=== PATIENT | male | born 1945 | race African-American/Black ===

== ENCOUNTER 2016-08-21 06:40 | Day surgery (SDC) | payer OTHER ==
--- NOTE | ~2016-08-21 | PREOPHP ---
PreOp History and Physical [id number] [place]. [address] NAME: KYLE KAPOOR : 47 STATUS : REG [facility]#: [id number] AGE: 70 ADM/REG DATE : 08/21/16 MR#: [id number] REPORT SERV DATE: 08/21/16 DICTATED BY: YC KOHLI III DATE: 08/07/16 REPORT STATUS : Draft TRANSCRIBED BY: MODBina DATE: 08/07/16 HISTORY OF PRESENT ILLNESS: This 70-year-old male comes to the operating room for laparoscopic revision of a nonfunctioning peritoneal dialysis catheter, possible laparotomy, possible replacement of the catheter. The patient has a history of end-stage renal disease. He is currently dependent on hemodialysis. The patient had a peritoneal dialysis catheter which was placed in January of last year. Soon after surgery, the patient fell and injured his shoulder. He has not used his peritoneal dialysis catheter since that time. Recently, it was noted that the catheter does not flush adequately. He comes now for laparoscopic revision of the catheter, possible replacement, possible laparotomy. MEDICATIONS: Aspirin, atorvastatin, calcium, carvedilol, hydroxychloroquine, Levemir insulin, magnesium, prednisone, tamsulosin, torsemide, zolpidem, baclofen, lorazepam. PAST MEDICAL HISTORY: Includes chronic kidney disease, dialysis dependent; hypertension; obesity; insulin-dependent diabetes mellitus; arthritis; hyperlipidemia; congestive heart failure; coronary artery disease; history of myocardial infarction. ALLERGIES: NONE. PAST SURGICAL HISTORY: Includes toe amputation and peritoneal dialysis catheter placement. FAMILY HISTORY: Positive for diabetes and heart disease. SOCIAL HISTORY: The patient has a previous history of tobacco abuse. No history of alcohol use. REVIEW OF SYSTEMS: The patient complains of swelling in his hands and feet, back pain. PHYSICAL EXAMINATION: GENERAL: Reveals a very large, very obese male, in no acute distress. He is alert and oriented x3. VITAL SIGNS: Blood pressure 152/74, pulse 90, temp 97.7. HEENT: Unremarkable. Cranial nerves II through XII were normal. LUNGS: Clear. CARDIAC: Normal. ABDOMEN: Soft. Nontender. He has a peritoneal dialysis catheter in place. ASSESSMENT: 1. A 70-year-old male with end-stage renal disease, dialysis dependent, with nonfunctioning or inadequately functioning peritoneal dialysis catheter. 2. Obesity. 3. Insulin-dependent diabetes mellitus. 4. Coronary artery disease. 5. History of myocardial infarction in the past. 6. Hypertension. PreOp History and Physical [address] [address] NAME: KYLE KAPOOR : 47 STATUS : REG [facility] PAT#: [id number] AGE: 70 ADM/REG DATE : 08/21/16 MR#: [id number] REPORT SERV DATE: 08/21/16 DICTATED BY: CY KOHLI III DATE: 08/07/16 REPORT STATUS : Draft TRANSCRIBED BY: MODL DATE: 08/07/16 7. Obesity. 8. Arthritis. 9. Hyperlipidemia. PLAN: The patient comes to the operating room now for laparoscopic revision of his peritoneal dialysis catheter, possible replacement of the catheter, possible laparotomy. This procedure, the risks, benefits, and alternatives, including not limited to the risk for bleeding, infection, enterotomy, injury to any abdominal structure, postop small bowel obstruction, ileus, infection of the catheter, peritonitis requiring removal of the catheter, migration or occlusion of the catheter requiring replacement or revision, possible need for laparotomy, possibility that we may not be able to obtain a functioning catheter and that the patient may not be a candidate for peritoneal dialysis and unforeseen complications including deep venous thrombosis, pulmonary embolus, myocardial infarction, stroke, pneumonia, and , have been fully and completely explained to the patient and family prior to surgery. The fact that this is a major operation with risk for major morbidity and mortality has been explained. The expected length of recovery has been explained. The patient and family had questions which have been answered. They clearly understand the risks and agreed to surgery as planned. KARI/LOGAN Cy Kohli III, M.D. / [id number]
--- NOTE | ~2016-08-21 | OP ---
Record Of Operation [facility] [address] [place]. [address] NAME: KYLE KAPOOR : 47 STATUS : REG [facility] PAT#: [id number] AGE: 70 ADM/REG DATE : 08/21/16 MR#: [id number] REPORT SERV DATE: 08/21/16 DICTATED BY: CY KOHLI III DATE: 08/21/16 REPORT STATUS : Draft TRANSCRIBED BY: MODL DATE: 08/21/16 DATE OF PROCEDURE: 08/21/2016 PREOPERATIVE DIAGNOSIS: Poorly draining peritoneal dialysis catheter, with a history of end- stage renal disease, with need for revision of catheter. POSTOPERATIVE DIAGNOSIS: Poorly draining peritoneal dialysis catheter, with a history of end stage renal disease, with need for revision of catheter, occlusion of catheter due to fibrinous membrane occluding the catheter. PROCEDURE: Laparoscopic revision of peritoneal dialysis catheter with lysis of adhesions. SURGEON: Dr. Cy Kohli. ANESTHESIA: General with intubation. COMPLICATIONS: None. ESTIMATED BLOOD LOSS: Less than 5 mL. SPECIMENS: None. DRAINS: None. LAP AND SPONGE COUNT: Correct x3. BRIEF HISTORY: This 70-year-old male has a history of end-stage renal disease and is currently dependent on hemodialysis. The patient has a peritoneal dialysis catheter which was placed in January of last year. The patient has not been able to use it because of other medical issues. He is now in desire of using the catheter when it was noted that it does not flush adequately. It was therefore felt that laparoscopic revision of the catheter, possible replacement of the catheter, possible laparotomy was indicated. This procedure, the risks, benefits, and alternatives, including but not limited to the risk for bleeding, infection, enterotomy, injury to abdominal structure, postop small bowel obstruction, ileus, infection of the catheter, peritonitis, requiring removal of the catheter, dislodgement of the catheter or migration requiring revision or replacement, possible need for laparotomy with the possibility that we might not be able to obtain a functioning dialysis catheter, the possibility that the patient might not be a candidate for peritoneal dialysis and unforeseen complications including deep venous thrombosis, pulmonary embolus, myocardial infarction, stroke, pneumonia, and , were carefully and fully explained to the patient and his family prior to surgery. Their questions were answered. They understood the risks and agreed to the surgery as planned. FINDINGS: The peritoneal dialysis catheter was in the correct position. A fibrinous membrane had grown around the catheter and there were adhesions around as well, completely engulfing the catheter and encasing it. This membrane and the adhesions were completely Record Of Operation [id number] [facility] [place]. [address] NAME: KYLE KAPOOR : 47 STATUS : REG [facility] PAT#: [id number] AGE: 70 ADM/REG DATE : 08/21/16 MR#: [id number] REPORT SERV DATE: 08/21/16 DICTATED BY: CY KOHLI III DATE: 08/21/16 REPORT STATUS : Draft TRANSCRIBED BY: MODBina DATE: 08/21/16 divided and freed up and the catheter was removed over to the right lower abdominal wall in an attempt to free it from all adhesions. PROCEDURE IN DETAIL: After being properly identified and after discussing the risks of surgery with the patient and his family again in the preoperative area, he was taken to the operating room and placed in the supine position on the operating room table. General anesthesia was administered and he was intubated without difficulty. The abdomen was prepped and draped sterilely in the usual fashion. After an appropriate "time-out" per JCAHO standards, a small transverse incision was made just beneath the xiphoid process. The incision was continued through the subcutaneous tissue. Hemostasis was controlled with electrocautery. The patient is very obese and his abdominal wall was very thick. We dissected down to the fascia. The fascia was opened and the perineum was opened. The abdominal cavity was entered under direct vision. A #10 balloon tipped Origin trocar was placed under direct vision into the peritoneal cavity. The balloon was inflated. The abdominal cavity was insufflated to about 13 mmHg of carbon dioxide. The laparoscope was placed through the trocar. The lower abdomen was inspected. The peritoneal dialysis catheter was identified. It was in the correct position but it had been completely engulfed and encased with a fibrinous membrane completely encircling it. There were also adhesions between several loops of small bowel and the catheter so that was completely occluded with these adhesions and the fibrinous membrane. These were confined to the area where the catheter was located. There were no other unusual findings noted. Two 5 mm trocars were then placed along the left lateral abdominal wall, under direct vision with a laparoscope. Appropriate instruments were placed through the trocars. Using sharp dissection, the membrane which was completely encased in the catheter was completely divided from the midline of the abdominal wall all the way distally. There were several bands of adhesions between several loops of bowel and the catheter and these were divided using sharp dissection. In this way, the entire catheter was freed up completely from this membrane and adhesions. The catheters were relocated over to the right lower quadrant where there were no adhesions and away from the area where the adhesive process was located. The catheter was tacked in position with a 0 Prolene suture placed through the abdominal wall using a suture passer. This resulted in good positioning of the catheter in the right lower quadrant. The catheter was then connected to 500 mL bag of saline. The saline was allowed to flow through the catheter. It was noted to flow easily and rapidly with no resistance. The saline bag was then placed to the ground and the fluid was allowed to egress out of the abdominal cavity by gravity. It was noted to flow easily with no resistance. Hemostasis was assured. The lateral two trocars were removed under direct vision with the laparoscope. Finally the subxiphoid trocar was removed under direct vision with a laparoscope to assure hemostasis in this incision. The air was removed from the peritoneal cavity through this incision. Hemostasis was assured. The fascia of this incision was closed with interrupted 0 Vicryl sutures. The skin incisions were closed with running subcuticular 4-0 Monocryl stitches. The catheter was capped off. Dressings were applied. Anesthesia was reversed. The patient was taken to the recovery room in stable condition. He tolerated the procedure well. His family was informed of the results of surgery. The patient will be discharged Record Of Operation [address] [address] NAME: KYLE KAPOOR : 47 STATUS : REG [facility] PAT#: [id number] AGE: 70 ADM/REG DATE : 08/21/16 MR#: [id number] REPORT SERV DATE: 08/21/16 DICTATED BY: CY KOHLI III DATE: 08/21/16 REPORT STATUS : Draft TRANSCRIBED BY: MODL DATE: 08/21/16 when stable and comfortable and able to void and ambulate. His family was advised that he should keep his wounds clean and dry for one week and that he should not drive for three to four days after surgery or while using narcotics and that he should monitor his glucose carefully and that he should resume his usual medications. He was asked to return to see me in two weeks for followup and to see the peritoneal dialysis nurse in one week or as she instructs. He was advised to keep his wounds clean and dry until he sees the dialysis nurse in one week. He was given a prescription for Percocet 7.5 one t.i.d. #12, as needed for pain, which he was advised not to use while driving or with other narcotics. He was asked to return for any nausea, vomiting, fever, chills, wound drainage, or any other problems prior to that time. RHJ/OLGAN Cy Kohli III, M.D. / [id number] CC: Haleigh Carcamo III, M.D.
[~2016-08-21 06:40] MED LIST: AMB10 PO; ARAVA10 PO; ARAVA20 PO; ASAB PO; ATV.5 PO; COREG12 PO; COREG6 PO; CPZ25 PO; DEMA20 PO; ENDOCET1 TA1 PO; ENDOCET1 TAB PO; FIBER PO; FIBERCON PO; FLOMAX4 PO; HUMALOG SC; HUMAMIXPEN SC; IRON INFUSION IV; IRON325 MG PO; LEVAQUIN5T PO; LEVEMFLXPN SC; LEVEMIR SC; LIOR10 PO; LIPITOR40 PO; MAGOX4 PO; MULTIPLE VIT PO; NORCO1 TA1 PO; NOVOPENMIX SC; P10 PO; P20 PO; PERCOCET1 TA2 PO; PHOSLO PO; PLAQ200B PO; PRAVACHOL40 MG PO; PRIN20 PO; REG5 PO; SB325 PO; SODIUM BICAR PO; Z-PAK PO; [UNRECOGNIZED DRUG - OTHER] PO; [UNRECOGNIZED DRUG - OTHER] PO; [UNRECOGNIZED DRUG - OTHER] PO; [UNRECOGNIZED DRUG - OTHER] PO
[2016-08-21 07:44] LABS: BASOPHILS 0.3 %; BASOPHILS ABSOLUTE 0.02 10/3/uL (0.0-0.16); EOSINOPHILS 2.8 %; EOSINOPHILS ABSOLUTE 0.16 10/3/uL (0.0-0.53); HEMOGLOBIN 11.7 g/dL (13.6-17.8); IMMATURE GRANULOCYTES 1.2 %; IMMATURE GRANULOCYTES ABSOLUTE 0.07 10/3/uL (0.0-0.11); LYMPHOCYTES 23.6 %; LYMPHOCYTES ABSOLUTE 1.36 10/3/uL (0.67-4.30); MEAN CORPUSCULAR HEMOGLOB 25.4 pg (26.0-34.0); MEAN CORPUSCULAR VOLUME 79.6 fL (80-100); MEAN PLATELET VOLUME 10.2 fL (9.2-13.0); MONOCYTES 18.5 %; MONOCYTES ABSOLUTE 1.07 10/3/uL (0.21-1.20); NEUTROPHILS 53.6 %; NEUTROPHILS ABSOLUTE 3.09 10/3/uL (2.02-8.40); PLATELET COUNT 317 10/3/uL (150-400); RBC DISTRIBUTION WIDTH 17.3 % (12.0-16.0); WHITE BLOOD CELLS 5.8 10/3/uL (4.5-10.5)
[2016-08-21 07:45] LABS: HEMATOCRIT 36.6 % (40.0-51.0); MANUAL DIFF NO %
[2016-08-21 08:23] LABS: ALBUMIN 3.1 G/DL (3.5-5.0); CALCIUM, SERUM 8.7 MG/DL (8.5-10.4); CHLORIDE, SERUM 100 MMOL/L (96-112); CO2 (CARBON DIOXIDE) 27 MMOL/L (24-34); POTASSIUM, SERUM 4.2 MMOL/L (3.5-5.3); SGOT(AST) 15 U/L (5-40); SGPT(ALT) 15 U/L (5-65); SODIUM, SERUM 138 MMOL/L (135-148); TOTAL BILIRUBIN 0.3 MG/DL (0-1.2); TOTAL PROTEIN 7.1 G/DL (6.0-8.5)
[2016-08-21 08:24] LABS: A/G RATIO 0.8 (0.7-1.9); ALKALINE PHOSPHATASE 130 U/L (45-117); BUN (BLOOD UREA NITROGEN) 36 MG/DL (6-23); CREATININE 3.79 MG/DL (0.70-1.30); GFR AFRICAN AMERICAN 18 ML/MIN (>=60); GFR NON AFRICAN AMERICAN 15 ML/MIN (>=60); GLUCOSE, SERUM 146 MG/DL (60-99)
[2016-08-21 12:15] LABS: HEMATOCRIT 43.5 % (40.0-51.0); HEMOGLOBIN 12.9 g/dL (13.6-17.8)
[2016-10-09] MEDS ORDERED: CPZ25 PO (15:55)
[2016-10-09] MEDS ORDERED: ZANTAC 150 PO (15:56)
[2017-02-24] MEDS ORDERED: PHOSLO PO (15:18)
[2017-02-24] MEDS ORDERED: PRAVACHOL40 MG PO (15:19)
[2017-02-24] MEDS ORDERED: PREDNISONE2.5 MG PO (15:21)
[2017-02-24] MEDS ORDERED: P5 PO (15:21)
[2017-02-28] MEDS ORDERED: DSS PO (16:57)
[2017-02-28] MEDS ORDERED: BACTRONASA NAS (17:08)
[2017-02-28] MEDS ORDERED: ULTRAM50 PO (17:32)
[2017-02-28] MEDS ORDERED: ZOFRAN4 PO (17:32)
[2017-02-28] MEDS ORDERED: ACET500CAP PO (17:34)
[2017-02-28] MEDS ORDERED: COREG6 PO (17:42)
== END 2016-08-21 13:03 | disposition home or self-care (01) ==
LOC: SDC 06:40
PROVIDERS: Surgery
PROC: 0JWT33Z Revision of Infusion Device in Trunk Subcutaneous Tissue and Fascia, Percutaneous Approach (ICD-10-PCS; principal; 2016-08-21 07:45)
DX: T85.691A Other mechanical complication of intraperitoneal dialysis catheter, initial encounter (principal); I13.0 Hypertensive heart and chronic kidney disease with heart failure and stage 1 through stage 4 chronic kidney disease, or unspecified chronic kidney disease; E11.22 Type 2 diabetes mellitus with diabetic chronic kidney disease; I50.9 Heart failure, unspecified; N18.9 Chronic kidney disease, unspecified; E78.5 Hyperlipidemia, unspecified; I25.2 Old myocardial infarction; I25.10 Atherosclerotic heart disease of native coronary artery without angina pectoris; E66.9 Obesity, unspecified; E78.00 Pure hypercholesterolemia, unspecified; I73.9 Peripheral vascular disease, unspecified; M06.9 Rheumatoid arthritis, unspecified; K21.9 Gastro-esophageal reflux disease without esophagitis; Z79.82 Long term (current) use of aspirin; Z79.899 Other long term (current) drug therapy; Z82.49 Family history of ischemic heart disease and other diseases of the circulatory system; Z83.3 Family history of diabetes mellitus; Z87.891 Personal history of nicotine dependence; Z88.8 Allergy status to other drugs, medicaments and biological substances; Z79.4 Long term (current) use of insulin; Z79.891 Long term (current) use of opiate analgesic; Z90.89 Acquired absence of other organs; Z98.890 Other specified postprocedural states
CPT/HCPCS: 80053; 82962; 85014; 85018; 85025; 93005; A9270-GY; J0690; J2405; J2710; J3010

== ENCOUNTER 2016-08-22 15:41 | Emergency (ER) | payer OTHER ==
[2016-08-22 13:22] LABS: BASOPHILS 0.3 %; BASOPHILS ABSOLUTE 0.02 10/3/uL (0.0-0.16); EOSINOPHILS 1.7 %; EOSINOPHILS ABSOLUTE 0.13 10/3/uL (0.0-0.53); HEMATOCRIT 38.1 % (40.0-51.0); HEMOGLOBIN 11.8 g/dL (13.6-17.8); IMMATURE GRANULOCYTES 0.5 %; IMMATURE GRANULOCYTES ABSOLUTE 0.04 10/3/uL (0.0-0.11); LYMPHOCYTES 10.4 %; LYMPHOCYTES ABSOLUTE 0.79 10/3/uL (0.67-4.30); MANUAL DIFF NO %; MEAN CORPUSCULAR HEMOGLOB 25.7 pg (26.0-34.0); MONOCYTES 15.9 %; MONOCYTES ABSOLUTE 1.21 10/3/uL (0.21-1.20); NEUTROPHILS 71.2 %; PLATELET COUNT 275 10/3/uL (150-400); RBC DISTRIBUTION WIDTH 17.1 % (12.0-16.0); RED CELL COUNT 4.59 10/6/uL (4.7-6.1); WHITE BLOOD CELLS 7.6 10/3/uL (4.5-10.5)
[2016-08-22 13:28] LABS: INTERNATIONAL NORMAL RATI 1.3 UNITS (-); PARTIAL THROMBO TIME 36.3 SEC (22.5-37.2); PROTIME (NOT ORD) 16.2 SEC (12.0-14.5)
[2016-08-22 13:38] LABS: CALCIUM, SERUM 8.6 MG/DL (8.5-10.4); CHEST PAIN PROFILE TAT 0 Hrs 22 Mins; CHLORIDE, SERUM 98 MMOL/L (96-112); CO2 (CARBON DIOXIDE) 24 MMOL/L (24-34); GFR AFRICAN AMERICAN 11 ML/MIN (>=60); GFR NON AFRICAN AMERICAN 10 ML/MIN (>=60); GLUCOSE, SERUM 169 MG/DL (60-99); POTASSIUM, SERUM 4.8 MMOL/L (3.5-5.3); SODIUM, SERUM 133 MMOL/L (135-148); TROPONIN I 0.02 NG/ML (<0.05)
[2016-08-22 13:39] LABS: BUN (BLOOD UREA NITROGEN) 52 MG/DL (6-23); CREATININE 5.43 MG/DL (0.70-1.30)
[2016-10-09] MEDS ORDERED: CPZ25 PO (15:55)
[2016-10-09] MEDS ORDERED: ZANTAC 150 PO (15:56)
[2017-02-24] MEDS ORDERED: PHOSLO PO (15:18)
[2017-02-24] MEDS ORDERED: PRAVACHOL40 MG PO (15:19)
[2017-02-24] MEDS ORDERED: P5 PO (15:21)
[2017-02-24] MEDS ORDERED: PREDNISONE2.5 MG PO (15:21)
[2017-02-28] MEDS ORDERED: DSS PO (16:57)
[2017-02-28] MEDS ORDERED: BACTRONASA NAS (17:08)
[2017-02-28] MEDS ORDERED: ULTRAM50 PO (17:32)
[2017-02-28] MEDS ORDERED: ZOFRAN4 PO (17:32)
[2017-02-28] MEDS ORDERED: ACET500CAP PO (17:34)
[2017-02-28] MEDS ORDERED: COREG6 PO (17:42)
== END 2016-08-22 17:41 | disposition home or self-care (01) ==
LOC: ER 15:41
PROVIDERS: Emergency Medicine
PROC: 0JBR0ZZ Excision of Left Foot Subcutaneous Tissue and Fascia, Open Approach (ICD-10-PCS; principal; 2016-08-22)
DX: R10.84 Generalized abdominal pain (principal); R10.12 Left upper quadrant pain; I25.2 Old myocardial infarction; I13.0 Hypertensive heart and chronic kidney disease with heart failure and stage 1 through stage 4 chronic kidney disease, or unspecified chronic kidney disease; N18.9 Chronic kidney disease, unspecified; I50.9 Heart failure, unspecified; M32.9 Systemic lupus erythematosus, unspecified; E11.621 Type 2 diabetes mellitus with foot ulcer; L97.429 Non-pressure chronic ulcer of left heel and midfoot with unspecified severity; E66.01 Morbid (severe) obesity due to excess calories; Z88.8 Allergy status to other drugs, medicaments and biological substances; Z79.4 Long term (current) use of insulin; Z79.52 Long term (current) use of systemic steroids; Z79.82 Long term (current) use of aspirin; Z79.899 Other long term (current) drug therapy
CPT/HCPCS: 11042; 71020; 74176; 80048; 83735; 84484; 85025; 85610; 85730; 93005; 96372; 99285; J1170

== ENCOUNTER 2016-09-17 06:10 | Day surgery (SDC) | payer OTHER ==
--- NOTE | ~2016-09-17 | OP ---
Record Of Operation [facility] [address] [place]. [address] NAME: KYLE KAPOOR : 47 STATUS : [facility]#: [id number] AGE: 70 ADM/REG DATE : 09/17/16 MR#: [id number] REPORT SERV DATE: 09/17/16 DICTATED BY: CY KOHLI III DATE: 09/17/16 REPORT STATUS : Draft TRANSCRIBED BY: MODL DATE: 09/17/16 DATE OF PROCEDURE: 09/17/2016 PREOPERATIVE DIAGNOSIS: End-stage renal disease, with need for removal of peritoneal dialysis catheter which is not being used. POSTOPERATIVE DIAGNOSIS: End-stage renal disease, with need for removal of peritoneal dialysis catheter which is not being used. PROCEDURE: Removal of the peritoneal dialysis catheter. SURGEON: Cy Kohli M.D. ANESTHESIA: General with intubation. COMPLICATIONS: None. ESTIMATED BLOOD LOSS: Less than 5 mL. SPECIMENS: Peritoneal dialysis catheter for identification. DRAINS: None. LAP AND SPONGE COUNT: Correct x3. BRIEF HISTORY: This 70-year-old male has a history of end-stage renal disease. He is currently changed from peritoneal dialysis to hemodialysis. He has elected not to continue with peritoneal dialysis, and it was felt that removal of his peritoneal dialysis catheter was indicated. This procedure, the risks, benefits and alternatives, including but not limited to the risk for bleeding, infection, enterotomy, injury to any abdominal structure, postop small bowel obstruction, ileus, seroma formation, hematoma formation, and unforeseen complications including deep venous thrombosis, pulmonary embolus, myocardial infarction, stroke, pneumonia, and were fully explained to the patient prior to the surgery. His questions were answered. He understood the risks and agreed to the surgery as planned. DESCRIPTION OF PROCEDURE: After being appropriately identified and after discussing the risks of surgery with him in the preoperative area, he was taken to the operating room and placed in supine position on the operating room table. General anesthesia was administered. He was intubated without difficulty. The abdomen was prepped and draped sterilely in the usual fashion. After an appropriate "time-out" per JCAHO standards, a small incision was made transversely just beneath the umbilicus over the previous incision. The incision was continued through the subcutaneous tissue. Hemostasis was controlled with the cautery. The incision was continued down to the fascia. The inner cuff was identified at the level of fascia. Using sharp dissection, this cuff was dissected free from the surrounding tissues. The entire intraabdominal portion of the catheter was removed. The entire catheter was removed. The second cuff in the subcutaneous tissue was then dissected free from the Record Of Operation [facility] [address] [place]. [address] NAME: KYLE KAPOOR : 47 STATUS : [facility]#: [id number] AGE: 70 ADM/REG DATE : 09/17/16 MR#: [id number] REPORT SERV DATE: 09/17/16 DICTATED BY: CY KOHLI III DATE: 09/17/16 REPORT STATUS : Draft TRANSCRIBED BY: LOGAN DATE: 09/17/16 subcutaneous tissue at its exit site from the abdominal wall in the right lateral abdominal wall. The entire intraabdominal and abdominal wall portion of the catheter was completely removed. The catheter was sent for identification. The small defect in the fascia where the catheter had exited the abdominal wall was closed with a 0 Prolene suture. Hemostasis was assured. The subcutaneous tissue was closed with a running 3-0 chromic suture. The skin was closed with a running subcuticular 4-0 Monocryl stitch. The lateral incision was closed loosely with a 4-0 Monocryl stitch. Dressings were applied. Anesthesia was reversed. The patient was taken to the recovery room in stable condition. He tolerated the procedure well. His family was informed the results of the surgery. The patient will be discharged when stable and comfortable. His family has been advised that he should keep his wounds clean and dry for [address] hours[address] He should not drive for two to three days after the surgery or use narcotics, and that he should resume his usual medications. He has been asked to return in two weeks for followup or sooner if any fever, chills, wound drainage, or other problems prior to that time. He was given a prescription for Percocet 7.5 one t.i.d., #12, as needed for pain, which he was advised not to use while driving. KARI/LOGAN Cy Kohli III, M.D. / [id number] CC: Haleigh Carcamo III, M.D.
--- NOTE | ~2016-09-17 | PREOPHP ---
PreOp History and Physical [address] [place]. [address] NAME: KYLE KAPOOR : 47 STATUS : [facility]#: [id number] AGE: 70 ADM/REG DATE : 09/17/16 MR#: [id number] REPORT SERV DATE: 09/17/16 DICTATED BY: CY KOHLI III DATE: 09/02/16 REPORT STATUS : Draft TRANSCRIBED BY: MODBina DATE: 09/02/16 HISTORY OF PRESENT ILLNESS: This 70-year-old male comes to the operating room for removal of a nonfunctioning peritoneal dialysis catheter. The patient has a history of end-stage renal disease. He is currently dependent on hemodialysis. The patient has a peritoneal dialysis catheter which was placed, but which is not being used. Since placement of the catheter, the patient has decided that he does not wish to pursue peritoneal dialysis and wishes to continue with hemodialysis. Therefore, he request that his peritoneal dialysis catheter be removed. He comes now for removal of this peritoneal dialysis catheter. PAST MEDICAL HISTORY: 1. Chronic kidney disease, dialysis dependent. 2. Hypertension. 3. Obesity. 4. Insulin-dependent diabetes mellitus. 5. Arthritis. 6. Hyperlipidemia. 7. Congestive heart failure. 8. Coronary artery disease. 9. History of myocardial infarction. MEDICATIONS: Aspirin, atorvastatin, calcium, carvedilol, hydroxychloroquine, insulin, magnesium, prednisone, tamsulosin, torsemide, Zolpidem, baclofen, lorazepam. ALLERGIES: NONE. PAST SURGICAL HISTORY: Includes laparoscopic peritoneal dialysis catheter placement and revision, and toe amputation. FAMILY HISTORY: Positive for diabetes and heart disease. SOCIAL HISTORY: The patient has a previous history of tobacco abuse. No history of alcohol use. REVIEW OF SYSTEMS: The patient complains of swelling in his hands and feet, and back pain. PHYSICAL EXAMINATION: GENERAL: This is an obese male, in no acute distress. He is very large. He is alert and oriented x3. HEENT: Unremarkable. VITAL SIGNS: Blood pressure 152/74, pulse 90, temp 97.7. HEENT: Unremarkable. Cranial nerves II through XII were normal. LUNGS: Clear. CARDIAC: Normal. ABDOMEN: Soft. Nontender. He has a peritoneal dialysis catheter in place. ASSESSMENT: PreOp History and Physical [address] [place]. [address] NAME: KYLE KAPOOR : 47 STATUS : [facility] PAT#: [id number] AGE: 70 ADM/REG DATE : 09/17/16 MR#: [id number] REPORT SERV DATE: 09/17/16 DICTATED BY: CY KOHLI III DATE: 09/02/16 REPORT STATUS : Draft TRANSCRIBED BY: MODL DATE: 09/02/16 1. A 70-year-old male with end-stage renal disease, dialysis dependent, with desire to have peritoneal dialysis catheter removed as the patient plans to continue hemodialysis. 2. Obesity. 3. Insulin-dependent diabetes mellitus. 4. Coronary artery disease. 5. History of myocardial infarction in the past. 6. Hypertension. 7. Obesity. 8. Arthritis. 9. Hyperlipidemia. 10.History of congestive heart failure in the past. PLAN: The patient comes to the operating room now for removal of his peritoneal dialysis catheter. This procedure, the risks, benefits, and alternatives, including not limited to the risk for bleeding, infection, enterotomy, injury to any abdominal structure, postop small bowel obstruction, ileus, incisional hernia, dehiscence, fracture of the catheter requiring laparotomy and unforeseen complications including deep venous thrombosis, pulmonary embolus, myocardial infarction, stroke, pneumonia, anesthetic complications, and , have been explained to the patient prior to surgery. His questions have been answered. He understands the risks and agrees to surgery as planned. KARI/LOGAN Cy Kohli III, M.D. / [id number]
[2016-09-17 06:42] LABS: BASOPHILS 0.3 %; BASOPHILS ABSOLUTE 0.02 10/3/uL (0.0-0.16); EOSINOPHILS 2.2 %; EOSINOPHILS ABSOLUTE 0.13 10/3/uL (0.0-0.53); HEMATOCRIT 36.9 % (40.0-51.0); HEMOGLOBIN 11.7 g/dL (13.6-17.8); IMMATURE GRANULOCYTES 0.3 %; IMMATURE GRANULOCYTES ABSOLUTE 0.02 10/3/uL (0.0-0.11); LYMPHOCYTES ABSOLUTE 1.26 10/3/uL (0.67-4.30); MEAN CORPUS HGB CONC 31.7 g/dL (32.0-36.0); MEAN CORPUSCULAR HEMOGLOB 25.6 pg (26.0-34.0); MEAN CORPUSCULAR VOLUME 80.7 fL (80-100); MEAN PLATELET VOLUME 9.6 fL (9.2-13.0); MONOCYTES 17.6 %; MONOCYTES ABSOLUTE 1.06 10/3/uL (0.21-1.20); NEUTROPHILS 58.6 %; NEUTROPHILS ABSOLUTE 3.52 10/3/uL (2.02-8.40); RBC DISTRIBUTION WIDTH 17.9 % (12.0-16.0); RED CELL COUNT 4.57 10/6/uL (4.7-6.1)
[2016-09-17 06:43] LABS: MANUAL DIFF NO %; PLATELET COUNT 195 10/3/uL (150-400)
[2016-09-17 06:58] LABS: A/G RATIO 0.8 (0.7-1.9); ALBUMIN 3.2 G/DL (3.5-5.0); ALKALINE PHOSPHATASE 106 U/L (45-117); BUN (BLOOD UREA NITROGEN) 52 MG/DL (6-23); CALCIUM, SERUM 8.5 MG/DL (8.5-10.4); CHLORIDE, SERUM 99 MMOL/L (96-112); CO2 (CARBON DIOXIDE) 30 MMOL/L (24-34); CREATININE 5.35 MG/DL (0.70-1.30); GFR AFRICAN AMERICAN 12 ML/MIN (>=60); GFR NON AFRICAN AMERICAN 10 ML/MIN (>=60); GLUCOSE, SERUM 182 MG/DL (60-99); POTASSIUM, SERUM 4.5 MMOL/L (3.5-5.3); SGOT(AST) 12 U/L (5-40); SGPT(ALT) 8 U/L (5-65); SODIUM, SERUM 139 MMOL/L (135-148); TOTAL BILIRUBIN 0.8 MG/DL (0-1.2); TOTAL PROTEIN 7.2 G/DL (6.0-8.5)
[2016-10-09] MEDS ORDERED: CPZ25 PO (15:55)
[2016-10-09] MEDS ORDERED: ZANTAC 150 PO (15:56)
[2017-02-24] MEDS ORDERED: PHOSLO PO (15:18)
[2017-02-24] MEDS ORDERED: PRAVACHOL40 MG PO (15:19)
[2017-02-24] MEDS ORDERED: P5 PO (15:21)
[2017-02-24] MEDS ORDERED: PREDNISONE2.5 MG PO (15:21)
[2017-02-28] MEDS ORDERED: DSS PO (16:57)
[2017-02-28] MEDS ORDERED: BACTRONASA NAS (17:08)
[2017-02-28] MEDS ORDERED: ULTRAM50 PO (17:32)
[2017-02-28] MEDS ORDERED: ZOFRAN4 PO (17:32)
[2017-02-28] MEDS ORDERED: ACET500CAP PO (17:34)
[2017-02-28] MEDS ORDERED: COREG6 PO (17:42)
== END 2016-09-17 09:33 | disposition home or self-care (01) ==
LOC: SDC 06:10
PROVIDERS: Surgery
PROC: 0WPGX3Z Removal of Infusion Device from Peritoneal Cavity, External Approach (ICD-10-PCS; principal; 2016-09-17 06:45)
DX: N18.6 End stage renal disease (principal); E66.9 Obesity, unspecified; E11.9 Type 2 diabetes mellitus without complications; M19.90 Unspecified osteoarthritis, unspecified site; E78.5 Hyperlipidemia, unspecified; I50.9 Heart failure, unspecified; I13.2 Hypertensive heart and chronic kidney disease with heart failure and with stage 5 chronic kidney disease, or end stage renal disease; I25.10 Atherosclerotic heart disease of native coronary artery without angina pectoris; I25.2 Old myocardial infarction; I73.9 Peripheral vascular disease, unspecified; Z88.8 Allergy status to other drugs, medicaments and biological substances
CPT/HCPCS: 80053; 82962; 85025; 88300; A9270-GY; J0690; J2250; J2405; J2710; J3010

== ENCOUNTER 2016-10-20 08:23 | Day surgery (SDC) | payer OTHER ==
--- NOTE | ~2016-10-20 | EGD ---
EGD REPORT [facility] [address] [address] NAME: KYLE KAPOOR : 47 STATUS : REG [facility]#: [id number] AGE: 70 ADM/REG DATE : 10/20/16 MR#: [id number] REPORT SERV DATE: 10/20/16 DICTATED BY: SARAH RAMOS III DATE: 10/20/16 REPORT STATUS : Draft TRANSCRIBED BY: [facility] DATE: 10/20/16 Endoscopy Center Patient Name: Kyle Kapoor Date of : 1945 Attending MD: SARAH RAMOS III, MD Procedure Date No Time: 10/20/2016 Procedure: Upper GI endoscopy Indications: Heartburn Referring MD: SILVANA HOFF MD Medicines: Propofol per Anesthesia Complications: No immediate complications. Procedure: Pre-Anesthesia Assessment: - ASA Grade Assessment: III - A patient with severe systemic disease. After obtaining informed consent, the endoscope was passed under direct vision. Throughout the procedure, the patient's blood pressure, pulse, and oxygen saturations were monitored continuously. The GIF [id number] was introduced through the mouth, and advanced to the third part of duodenum. The upper GI endoscopy was accomplished with ease. The patient tolerated the procedure well. Findings: The examined esophagus was normal. A small hiatus hernia was present. The examined duodenum was normal. The entire examined stomach was normal. The BOGGS capsule with delivery system was introduced through the mouth and advanced into the esophagus, such that the BOGGS pH capsule was positioned 41 cm from the incisors, which was 6 cm proximal to the EG junction. The BOGGS pH capsule was then deployed and attached to the esophageal mucosa. The delivery system was then withdrawn. Endoscopy was utilized for probe placement and diagnostic evaluation. The nasopharynx and oropharynx are abnormal. Impression: - Normal esophagus. - Hiatus hernia. - Normal examined duodenum. - Normal stomach. Recommendation: - Patient has a contact number available for emergencies. The signs and symptoms of potential delayed complications were discussed with the patient. Return to normal activities tomorrow. Written discharge EGD REPORT [address] [address] NAME: KYLE KAPOOR : 47 STATUS : REG [facility]#: [id number] AGE: 70 ADM/REG DATE : 10/20/16 MR#: [id number] REPORT SERV DATE: 10/20/16 DICTATED BY: SARAH RAMOS III DATE: 10/20/16 REPORT STATUS : Draft TRANSCRIBED BY: [employer] DATE: 10/20/16 instructions were provided to the patient. - Discharge patient to home. - Follow an antireflux regimen. - Continue present medications. Procedure Code(s): --- Professional --- 94199, Esophagogastroduodenoscopy, flexible, transoral; diagnostic, including collection of specimen(s) by brushing or washing, when performed (separate procedure) Diagnosis Code(s): --- Professional --- K44.9, Diaphragmatic hernia without obstruction or gangrene R12, Heartburn CPT copyright 2013 [employer]. All rights reserved. The codes documented in this report are preliminary and upon wine cellar worker review may be revised to meet current compliance requirements. SARAH RAMOS III, MD 10/20/2016 10:46 AM This report has been signed electronically. Number of Addenda: 0 Note Initiated On: 10/20/2016 10:29 AM Scope Withdrawal Time 0 hours 0 minutes 0 seconds [id number] [place] [address]
[~2016-10-20 08:23] MED LIST changes: +ZANTAC 150 PO
[2016-10-20 10:18] LABS: BUN (BLOOD UREA NITROGEN) 64 MG/DL (6-23); CALCIUM, SERUM 8.4 MG/DL (8.5-10.4); CHLORIDE, SERUM 105 MMOL/L (96-112); CO2 (CARBON DIOXIDE) 28 MMOL/L (24-34); CREATININE 5.77 MG/DL (0.70-1.30); GFR AFRICAN AMERICAN 11 ML/MIN (>=60); GFR NON AFRICAN AMERICAN 9 ML/MIN (>=60); GLUCOSE, SERUM 90 MG/DL (60-99); POTASSIUM, SERUM 4.8 MMOL/L (3.5-5.3); SODIUM, SERUM 138 MMOL/L (135-148)
[2017-02-24] MEDS ORDERED: PHOSLO PO (15:18)
[2017-02-24] MEDS ORDERED: PRAVACHOL40 MG PO (15:19)
[2017-02-24] MEDS ORDERED: PREDNISONE2.5 MG PO (15:21)
[2017-02-24] MEDS ORDERED: P5 PO (15:21)
[2017-02-28] MEDS ORDERED: DSS PO (16:57)
[2017-02-28] MEDS ORDERED: BACTRONASA NAS (17:08)
[2017-02-28] MEDS ORDERED: ZOFRAN4 PO (17:32)
[2017-02-28] MEDS ORDERED: ULTRAM50 PO (17:32)
[2017-02-28] MEDS ORDERED: ACET500CAP PO (17:34)
[2017-02-28] MEDS ORDERED: COREG6 PO (17:42)
== END 2016-10-20 23:59 | disposition home or self-care (01) ==
LOC: DMU 08:23
PROVIDERS: Anesthesiology; Internal Medicine Gastroenterology
PROC: 0DJ07ZZ Inspection of Upper Intestinal Tract, Via Natural or Artificial Opening (ICD-10-PCS; principal; 2016-10-20 09:30)
DX: K44.9 Diaphragmatic hernia without obstruction or gangrene (principal); R12 Heartburn; E78.00 Pure hypercholesterolemia, unspecified; E11.22 Type 2 diabetes mellitus with diabetic chronic kidney disease; I13.11 Hypertensive heart and chronic kidney disease without heart failure, with stage 5 chronic kidney disease, or end stage renal disease; N18.6 End stage renal disease; I73.9 Peripheral vascular disease, unspecified; M06.9 Rheumatoid arthritis, unspecified; D50.9 Iron deficiency anemia, unspecified; G57.90 Unspecified mononeuropathy of unspecified lower limb; K21.9 Gastro-esophageal reflux disease without esophagitis; Z95.1 Presence of aortocoronary bypass graft; Z95.5 Presence of coronary angioplasty implant and graft; Z89.422 Acquired absence of other left toe(s); Z99.2 Dependence on renal dialysis; Z86.010 Personal history of colon polyps; Z87.891 Personal history of nicotine dependence; Z90.89 Acquired absence of other organs; Z79.4 Long term (current) use of insulin; Z79.891 Long term (current) use of opiate analgesic; Z79.52 Long term (current) use of systemic steroids; Z79.82 Long term (current) use of aspirin; Z79.899 Other long term (current) drug therapy; Z88.8 Allergy status to other drugs, medicaments and biological substances
CPT/HCPCS: 80048; 91035

== ENCOUNTER 2016-11-13 13:44 | Inpatient (IN) | payer OTHER ==
--- NOTE | ~2016-11-13 | CN ---
Consultation Report [facility] [address] [place]. 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 HISTORY OF PRESENT ILLNESS: Mr. Kapoor is a 71-year-old male patient, who is known to Dr. White in the outpatient setting, who presented to [facility] on 11/13 with acute episode of altered mental status. He was brought in by family and had a CT of the brain in the emergency room, which was negative for any acute CVA. Secondary to his altered mental status, he was admitted for further evaluation. He has a history of end- stage renal disease, requiring hemodialysis. He has a history of recurrent hiccups. Previously, he was on baclofen with recent re-initiation of baclofen in October, I believe 10/28/2016. Per the family, the patient takes this intermittently, he does not take it on a daily basis, only when he needs it for hiccups as well as second intermittent Thorazine. He presented with the above complaints. He has since been taken off these medications. He has not had any hiccups today. He is confused and unable to answer questions appropriately. He is noted to be drooling out of the side of his mouth. He has a cough. At times, he sits and acts as if he is going to have emesis, but does not. 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 At present, I have talked to the family we will put him on Protonix through the IV as well as Pepcid. He could potentially benefit from Questran versus Welchol when he is able to take p.o. safely. He has had a recent EGD with Dr. White on 10/20/2016 that showed normal esophagus, normal duodenum, normal stomach, and a hiatal hernia. He had a [place] pH capsule deployed, pH at the beginning of the study showed severe GERD on day 1. PAST MEDICAL HISTORY: Positive for recurrent hiccups; reflux; colon polyps; diverticulosis; duodenitis; end-stage renal disease; hypertension; diabetes; rheumatoid arthritis, on chronic immunosuppression; Charcot foot; left second toe amputation; history of back surgery. FAMILY HISTORY: Noncontributory from a GI standpoint. SOCIAL HISTORY: . Lives independently with his . Denies alcohol, tobacco, or illicits. ALLERGIES: REGLAN. HOME MEDICATIONS: Aspirin, baclofen, Coreg, Thorazine, Neurontin, Levemir, Arava, Ativan, magnesium oxide, Protonix, prednisone, and Demadex. REVIEW OF SYSTEMS: Consultation Report [place] [place] [id number] [place]. [address] NAME: KYLE KAPOOR : 47 STATUS : ADM IN [facility]#: [id number] AGE: 71 ADM/REG DATE : 11/13/16 MR#: [id number] REPORT SERV DATE: 11/14/16 DICTATED BY: WALDO ALVARADO DATE: 11/14/16 REPORT STATUS : Draft TRANSCRIBED BY: LOGAN DATE: 11/14/16 A 10-point review of systems was attempted, but unable to be obtained secondary to the patient's altered mental status. LABORATORY STUDIES: Sodium is 137, potassium is 4.4, BUN is 45, creatinine is 5.83. White count 10.3, hemoglobin 11.9, hematocrit 36.3, platelet count 280. PHYSICAL EXAMINATION: VITAL SIGNS: Temperature 98.1, pulse 118, respirations 18, blood pressure is 147/75. NEURO: Reveals an male, sitting up in the bed. He will look at me, but he cannot answer any of my questions. When asked how his stomach feels, he says it is fine. GENERAL: He is semi-cooperative. He is trying to get up and get out of the bed. HEAD, EARS, EYES, NOSE, AND THROAT: Anicteric. Pupils are equal, round, reactive to light and accommodation. Normocephalic and atraumatic. NECK: No JVD. No palpable nodes. Supple. LUNGS: Coarse, decreased throughout. CARDIOVASCULAR SYSTEM: Regular rhythm, but tachycardic. ABDOMEN: Soft and nondistended with active bowel sounds in all four quadrants. EXTREMITIES: No edema. Normal distal pulses. SKIN: Warm, dry, and intact. ASSESSMENT: 1. Acute-onset altered mental status, question med related. 2. Hiccups and gastroesophageal reflux disease. 3. Type 2 diabetes. 4. Questionable diabetic gastroparesis, Reglan caused confusion. 5. End-stage renal disease, on dialysis. PLAN: 1. Protonix IV. Pepcid also. 2. Questionable gastric emptying study at some point when he is able to take p.o. safely. 3. We will add Questran when he is able to take medications by mouth. We will follow. SYDNEE/LOGAN BINA Salazar / [id number] CC: Haleigh Mendoza M.D.
--- NOTE | ~2016-11-13 | DS ---
Discharge Summary [facility] [address] [place]. [address] NAME: KYLE KAPOOR : 47 STATUS : DIS IN PAT#: [id number] AGE: 71 ADM/REG DATE : 11/13/16 MR#: [id number] REPORT SERV DATE: 11/26/16 DICTATED BY: ISRAEL MCGINNIS DATE: 11/25/16 REPORT STATUS : Draft TRANSCRIBED BY: LOGAN DATE: 11/25/16 Data Collection from hospitalization DISCHARGE DIAGNOSES: 1. Acute delirium. 2. End-stage renal disease. 3. Recurrent hiccups. 4. Rheumatoid arthritis. 5. Hypertension. 6. Left foot pressure ulcer. 7. Diabetes mellitus. CONSULTATIONS: BINA Salazar PROCEDURES PERFORMED: CT scan of the brain without contrast on 11/13/2016. MEDICATIONS: Aspirin 81 mg daily; Lioresal 10-20 mg daily as needed; Coreg 12.5 mg twice a day; Thorazine 50 mg daily as needed; Questran Light 4 g twice a day; Pepcid 20 mg as instructed; Neurontin 100 mg at bedtime; Levemir 20 units subcutaneously at bedtime; Arava 20 mg daily; Ativan 0.5 mg twice a day as needed; Mag-Ox 400 mg twice a day; Protonix 40 mg twice a day; Deltasone 10 mg daily; Seroquel 25 mg at bedtime, and Demadex 20 mg on Thursday, , Thursday, and Thursday. CONDITION AT DISCHARGE: Stable. DISPOSITION: The patient was discharged home on a renal/dialysis 2000-calorie diet with activities as instructed. He would follow up with Dr. Kavya White three to four weeks following discharge and at [facility] the day following discharge for dialysis. HOSPITAL COURSE: This is a 71-year-old man who has had recalcitrant hiccups by history ongoing for about two years, but now much worse. The patient is followed by Dr. White. A HIDA scan had shown biliary reflux and possible gastritis. He has had reflux monitoring studies performed. The patient presented with side effects of Thorazine and baclofen with an altered mental status. He was admitted to the hospital at this time for further evaluation and treatment. Upon admission, creatinine level was 5.83. White count was 10.3. Seroquel was added to his regimen. Levemir was held. IV fluids were started. 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 The patient has a history of end-stage renal disease and requires hemodialysis. He has a history of recurrent hiccups. He had previously been on baclofen with recent re-initiation of baclofen in October. According to the patient's family, he takes it intermittently. He does not take it on a daily basis, only when he needs it for hiccups as well as intermittent Thorazine. These medications have been stopped. He has not had any hiccups. On 11/14/2016, he was confused and unable to answer questions appropriately. He did have some drooling out of the side of his mouth. He did have a cough. A HIDA scan earlier in the month had shown some bile reflux. We spoke with the patient's family regarding placing him on IV Protonix as well as Pepcid. It was felt Discharge Summary [address] [place]. [address] NAME: KYLE KAPOOR : 47 STATUS : DIS IN PAT#: [id number] AGE: 71 ADM/REG DATE : 11/13/16 MR#: [id number] REPORT SERV DATE: 11/26/16 DICTATED BY: ISRAEL MCGINNIS DATE: 11/25/16 REPORT STATUS : Draft TRANSCRIBED BY: LOGAN DATE: 11/25/16 that he could potentially benefit from Questran versus Welchol when he was able to take oral intake safely. He had a recent EGD on 10/20/2016 that showed normal esophagus, normal duodenum, normal stomach and hiatal hernia. He had a capsule study performed, pH at the beginning of the study showed severe gastroesophageal reflux disease. IV Protonix was going to be provided as well as Pepcid. Questran was going to be added once he was able to take medication by mouth. On 11/15/2016, the patient was still slow and confused. He was not himself. He has not had hiccups in 36 hours. He was not eating. He did take his medications that morning. He has not received baclofen in three days. Proton pump inhibitor was continued. Later in the day, his mentation was much improved. Antibiotics were continued. On 11/16/2016, he was eating well. He was requesting more. He had no cough or hiccups. He had no fevers. He was very alert. He seemed to be in good spirits. He does have a left foot medial pressure ulcer. A CT scan of the brain without contrast had been performed and showed no acute intracranial abnormality. Discharge planning was performed. He felt like he was back to his usual self. He was evaluated by Physical Therapy. On 11/18/2016, he had no new complaints. He was alert and cooperative. His lungs were clear. He had no edema. Discharge instructions were given. Due to his improved and stable condition, he was discharged home with the above-stated instructions. Information collected by: Pricila Hsu I submit the above information as my discharge summary. TG/LOGAN Israel Mcginnis M.D. / [id number] CC: Haliegh Mendoza M.D. Destin Griffin-Trussell, FNP
--- NOTE | ~2016-11-13 | PREOPHP ---
PreOp History and Physical [facility] [address] [place]. [address] NAME: KYLE KAPOOR : 47 STATUS : ADM IN [facility]#: [id number] AGE: 71 ADM/REG DATE : 11/13/16 MR#: [id number] REPORT SERV DATE: 11/13/16 DICTATED BY: ISRAEL MCGINNIS DATE: 11/13/16 REPORT STATUS : Draft TRANSCRIBED BY: LOGAN DATE: 11/13/16 TIME: 4:45 p.m. REASON FOR ADMISSION: 1. Recalcitrant hiccups per history ongoing for 2 years but now much worse. The patient is followed by Dr. White. HIDA scan had showed biliary reflux and possible gastritis. He has had reflux monitoring studies done by Dr. White. The patient now is admitted with side effects of Thorazine and baclofen with altered mental status. 2. Altered mental status, likely related to above medications. 3. Diabetes mellitus, possible gastroparesis and we will await what GI workup has been done to document this. 4. Rheumatoid arthritis, on Arava and prednisone, fairly well controlled. 5. ESRD. 6. Hypertension. PLAN: 1. Hold his baclofen and Thorazine. 2. GI consultation. 3. Continue proton pump inhibitor. 4. Hold his Arava but continue prednisone. 5. Hemodialysis tomorrow. 6. Control his diet. Monitor his diabetes and continue treatment for this based on a sliding scale. We will check an ammonia level in the morning plus a hemoglobin A1c. HISTORY: Obtained from the patient's records available. He is well known to me. He has end stage renal failure, on dialysis Thursday, Thursday, and Thursday at [facility]. He essentially has end-stage renal failure from diabetes. Attempted peritoneal dialysis but basically the catheter has not really functioned well and he had it removed on 09/17/2016, by Dr. Garcia and essentially the patient now has these recurrent hiccups. He previously had them before starting dialysis several years ago. Dr. Ceja had placed him on baclofen with resolution. Now these symptoms have become more persistent over the past several months. Thorazine has been attempted without success and now with addition of baclofen, altered mental status. They were able to suppress the hiccups partially but not permanently. There is a question of whether there is also some anxiety. He denies any shortness of breath or abdominal pain. No chest pain described. No hematochezia, melena, or hematemesis. PAST MEDICAL HISTORY: As described above. SOCIAL HISTORY: He does not smoke cigarettes, alcohol, or medication or street drug usage. He is retired. FAMILY HISTORY: Negative for chronic kidney disease or end-stage renal failure. REVIEW OF SYSTEMS: As per the HPI. MEDICATIONS: His home medications include magnesium oxide; Protonix; prednisone; torsemide; PreOp History and Physical [address] [address] NAME: KYLE KAPOOR : 47 STATUS : ADM IN [facility]#: [id number] AGE: 71 ADM/REG DATE : 11/13/16 MR#: [id number] REPORT SERV DATE: 11/13/16 DICTATED BY: ISRAEL MCGINNIS DATE: 11/13/16 REPORT STATUS : Draft TRANSCRIBED BY: LOGAN DATE: 11/13/16 aspirin; baclofen; carvedilol; Thorazine; Neurontin; Levemir; Arava; and Ativan. ALLERGIES: ARE TO REGLAN. PHYSICAL EXAMINATION: GENERAL: He is a pleasant elderly gentleman. He is obese, in no acute distress. VITAL SIGNS: His heart rate is about 110. Blood pressure is 140/90. Afebrile. HEENT: Pupils are reacting to light. He is not pale or jaundiced. He is having these tonic movements intermittently. He is staring into space with periods of disorientation. Pupils are reacting to light, but they are not pinpoint. Oral mucosa is moist. No pharyngitis and no thyromegaly. No carotid bruits. NECK: Supple. Left upper arm AV fistula. CHEST: Clear to percussion and auscultation. CARDIAC: S1, S2. No rub. ABDOMEN: Upper abdomen not distended. No hepatosplenomegaly. No tenderness, guarding, or rebound. Healed surgical scar noted. Bowel sounds normal. No peripheral edema. NEUROLOGIC: He is awake, alert, will follow commands. He is oriented to name and person but not to time and there are no gross neurological deficits. Muscle bulk and tone are appropriate for age. No gross neurological deficits. He has an ulcer on his left foot and is stable but it is not examined at this time. Reduced peripheral pulses are noted, dorsalis pedis, posterior tibial. LABORATORY DATA: Lab work; sodium 137, potassium 4.4, chloride 97, CO2 of 31, BUN 45, creatinine 5.83, glucose was 226. Hemoglobin is 11.9, hematocrit is 36.3, white count 10.3, and platelet count 280,000. MG/MODL Israel Mcginnis M.D. / [id number] CC: Israel Mcginnis M.D.
[2016-11-13 14:44] LABS: HEMATOCRIT 36.3 % (40.0-51.0); HEMOGLOBIN 11.9 g/dL (13.6-17.8); MEAN CORPUS HGB CONC 32.8 g/dL (32.0-36.0); MEAN CORPUSCULAR HEMOGLOB 26.2 pg (26.0-34.0); RBC DISTRIBUTION WIDTH 17.2 % (12.0-16.0); RED CELL COUNT 4.54 10/6/uL (4.7-6.1)
[2016-11-13 14:45] LABS: PLATELET COUNT 280 10/3/uL (150-400); WHITE BLOOD CELLS 10.3 10/3/uL (4.5-10.5)
[2016-11-13 14:46] LABS: MANUAL DIFF YES %; MEAN PLATELET VOLUME 11.1 fL (9.2-13.0)
[2016-11-13 15:00] LABS: A/G RATIO 0.8 (0.7-1.9); ALBUMIN 3.4 G/DL (3.5-5.0); CALCIUM, SERUM 9.2 MG/DL (8.5-10.4); CHLORIDE, SERUM 97 MMOL/L (96-112); CO2 (CARBON DIOXIDE) 31 MMOL/L (24-34); CREATININE 5.83 MG/DL (0.70-1.30); GFR AFRICAN AMERICAN 10 ML/MIN (>=60); GFR NON AFRICAN AMERICAN 9 ML/MIN (>=60); GLOBULIN 4.4 G/DL (2.5-4.1); POTASSIUM, SERUM 4.4 MMOL/L (3.5-5.3); SGPT(ALT) 14 U/L (5-65); SODIUM, SERUM 137 MMOL/L (135-148); TOTAL BILIRUBIN 0.8 MG/DL (0-1.2); TOTAL PROTEIN 7.8 G/DL (6.0-8.5)
[2016-11-13 15:01] LABS: ALKALINE PHOSPHATASE 120 U/L (45-117); BUN (BLOOD UREA NITROGEN) 45 MG/DL (6-23); GLUCOSE, SERUM 226 MG/DL (60-99); TROPONIN I 0.07 NG/ML (<0.05)
[2016-11-13 15:01] LABS: ASCORBIC ACID (UR NOT ORDER) NEG (NEG); BILIRUBIN, URINE NEGATIVE (NEG); ER URINALYSIS TAT 0 Hrs 12 Mins; KETONE, URINE TRACE MG/DL (NEG); LEUKOCYTE ESTERASE(NOT OR NEG (NEG); NITRITE (URINE) NEG (NEG); WBC (NOT ORDERED) (RFLEX) 4 (0-5)
[2016-11-13 15:02] LABS: SGOT(AST) 21 U/L (5-40)
[2016-11-13 15:09] LABS: BASOPHILS 1 %; ER DIFF TAT 0 Hrs 28 Mins; LYMPHOCYTES 19 %; LYMPHOCYTES ABSOLUTE (CALC) 1.96 10/3/uL (0.67-4.30); MONOCYTES 12 %; MONOCYTES ABSOLUTE (CALC) 1.24 10/3/uL (0.21-1.20); SEGMENTED NEUTROPHIL (0) 68 %; TOTAL NUCLEATED CELLS 100
[2016-11-13 15:30] LABS: ANISOCYTOSIS 1+ (5-10/OIF) (0-5/OIF); OVALOCYTES 1+ (3-10/OIF) (0-2/OIF); PLATELET ESTIMATE ADQ (ADEQUATE)
[2016-11-13] MEDS ORDERED: PROTONIX PO (16:28)
[2016-11-13] MEDS ORDERED: MAGOX4 PO (16:31)
[2016-11-13] MEDS ORDERED: COREG12 PO (16:31)
[2016-11-13] MEDS ORDERED: CPZ25 PO (16:32)
[2016-11-13] MEDS ORDERED: LIOR10 PO (16:33)
[2016-11-13] MEDS ORDERED: P10 PO (16:33)
[2016-11-13] MEDS ORDERED: ASA5GR PO (16:34)
[2016-11-13] MEDS ORDERED: ARAVA20 PO (16:34)
[2016-11-13] MEDS ORDERED: ATV.5 PO (16:34)
[2016-11-13] MEDS ORDERED: NEUR100 PO (16:35)
[2016-11-13] MEDS ORDERED: DEMA20 PO (16:36)
[2016-11-13] MEDS ORDERED: LEVEMFLXPN SC (16:36)
[2016-11-14 12:53] LABS: BASOPHILS 0.3 %; BASOPHILS ABSOLUTE 0.03 10/3/uL (0.0-0.16); EOSINOPHILS 0.7 %; EOSINOPHILS ABSOLUTE 0.07 10/3/uL (0.0-0.53); HEMATOCRIT 37.5 % (40.0-51.0); HEMOGLOBIN 12.3 g/dL (13.6-17.8); IMMATURE GRANULOCYTES 0.3 %; IMMATURE GRANULOCYTES ABSOLUTE 0.03 10/3/uL (0.0-0.11); LYMPHOCYTES 20.5 %; LYMPHOCYTES ABSOLUTE 2.18 10/3/uL (0.67-4.30); MANUAL DIFF NO %; MEAN CORPUS HGB CONC 32.8 g/dL (32.0-36.0); MEAN CORPUSCULAR HEMOGLOB 26.4 pg (26.0-34.0); MEAN CORPUSCULAR VOLUME 80.5 fL (80-100); MEAN PLATELET VOLUME 10.5 fL (9.2-13.0); MONOCYTES ABSOLUTE 1.81 10/3/uL (0.21-1.20); NEUTROPHILS 61.2 %; NEUTROPHILS ABSOLUTE 6.54 10/3/uL (2.02-8.40); PLATELET COUNT 266 10/3/uL (150-400); RBC DISTRIBUTION WIDTH 17.2 % (12.0-16.0); RED CELL COUNT 4.66 10/6/uL (4.7-6.1); WHITE BLOOD CELLS 10.7 10/3/uL (4.5-10.5)
[2016-11-14 13:00] LABS: INTERNATIONAL NORMAL RATI 1.4 UNITS (-); PROTIME (NOT ORD) 17.3 SEC (12.0-14.5)
[2016-11-14 13:08] LABS: AMMONIA < 10 UMOL/L (11-32)
[2016-11-14 13:10] LABS: CALCIUM, SERUM 9.2 MG/DL (8.5-10.4); CHLORIDE, SERUM 103 MMOL/L (96-112); CO2 (CARBON DIOXIDE) 29 MMOL/L (24-34); DIRECT BILIRUBIN 0.2 MG/DL (0.0-0.4); INDIRECT BILIRUBIN(NOT ORDER) 0.5 MG/DL (0.1-0.9); PHOSPHORUS, SERUM 6.1 MG/DL (2.5-4.5); SGOT(AST) 21 U/L (5-40); SGPT(ALT) 12 U/L (5-65); SODIUM, SERUM 141 MMOL/L (135-148); TOTAL BILIRUBIN 0.7 MG/DL (0-1.2); TOTAL PROTEIN 7.4 G/DL (6.0-8.5)
[2016-11-14 13:11] LABS: BUN (BLOOD UREA NITROGEN) 58 MG/DL (6-23); CREATININE 7.02 MG/DL (0.70-1.30); GFR AFRICAN AMERICAN 8 ML/MIN (>=60); GFR NON AFRICAN AMERICAN 7 ML/MIN (>=60); GLUCOSE, SERUM 77 MG/DL (60-99)
[2016-11-14 13:15] LABS: ALKALINE PHOSPHATASE 113 U/L (45-117)
[2016-11-14 13:39] LABS: GLYCOHEMOGLOBIN (HbA1c) 8.1 % (4.7-6.1)
[2016-11-15 06:34] LABS: HEMATOCRIT 37.2 % (40.0-51.0); HEMOGLOBIN 11.8 g/dL (13.6-17.8); MEAN CORPUS HGB CONC 31.7 g/dL (32.0-36.0); MEAN CORPUSCULAR VOLUME 81.9 fL (80-100); MEAN PLATELET VOLUME 10.8 fL (9.2-13.0); PLATELET COUNT 251 10/3/uL (150-400); RBC DISTRIBUTION WIDTH 17.1 % (12.0-16.0); RED CELL COUNT 4.54 10/6/uL (4.7-6.1); WHITE BLOOD CELLS 6.7 10/3/uL (4.5-10.5)
[2016-11-15 06:36] LABS: MANUAL DIFF YES %
[2016-11-15 06:45] LABS: ALBUMIN 2.9 G/DL (3.5-5.0); CALCIUM, SERUM 8.6 MG/DL (8.5-10.4); CHLORIDE, SERUM 100 MMOL/L (96-112); CO2 (CARBON DIOXIDE) 29 MMOL/L (24-34); POTASSIUM, SERUM 3.9 MMOL/L (3.5-5.3); SODIUM, SERUM 138 MMOL/L (135-148)
[2016-11-15 06:48] LABS: BUN (BLOOD UREA NITROGEN) 36 MG/DL (6-23); CREATININE 5.44 MG/DL (0.70-1.30); GFR AFRICAN AMERICAN 11 ML/MIN (>=60); GFR NON AFRICAN AMERICAN 10 ML/MIN (>=60); GLUCOSE, SERUM 182 MG/DL (60-99); PHOSPHORUS, SERUM 4.3 MG/DL (2.5-4.5)
[2016-11-15 06:57] LABS: ANISOCYTOSIS 1+ (5-10/OIF) (0-5/OIF); LYMPHOCYTES 24 %; LYMPHOCYTES ABSOLUTE (CALC) 1.61 10/3/uL (0.67-4.30); MONOCYTES 12 %; NEUTROPHILS ABSOLUTE (CALC) 4.29 10/3/uL (2.02-8.40); PLATELET ESTIMATE ADQ (ADEQUATE); SEGMENTED NEUTROPHIL (0) 64 %; TOTAL NUCLEATED CELLS 100
[2016-11-16 08:40] LABS: BASOPHILS 0.5 %; BASOPHILS ABSOLUTE 0.04 10/3/uL (0.0-0.16); EOSINOPHILS 3.3 %; EOSINOPHILS ABSOLUTE 0.27 10/3/uL (0.0-0.53); HEMOGLOBIN 11.2 g/dL (13.6-17.8); IMMATURE GRANULOCYTES 0.4 %; IMMATURE GRANULOCYTES ABSOLUTE 0.03 10/3/uL (0.0-0.11); LYMPHOCYTES 33.1 %; LYMPHOCYTES ABSOLUTE 2.73 10/3/uL (0.67-4.30); MANUAL DIFF NO %; MEAN CORPUSCULAR HEMOGLOB 25.7 pg (26.0-34.0); MEAN CORPUSCULAR VOLUME 80.5 fL (80-100); MEAN PLATELET VOLUME 11.2 fL (9.2-13.0); MONOCYTES 14.5 %; NEUTROPHILS 48.2 %; NEUTROPHILS ABSOLUTE 3.99 10/3/uL (2.02-8.40); PLATELET COUNT 264 10/3/uL (150-400); RBC DISTRIBUTION WIDTH 16.8 % (12.0-16.0); RED CELL COUNT 4.35 10/6/uL (4.7-6.1); WHITE BLOOD CELLS 8.3 10/3/uL (4.5-10.5)
[2016-11-16 08:58] LABS: ALBUMIN 2.8 G/DL (3.5-5.0); CALCIUM, SERUM 8.6 MG/DL (8.5-10.4); CHLORIDE, SERUM 104 MMOL/L (96-112); CO2 (CARBON DIOXIDE) 25 MMOL/L (24-34); SODIUM, SERUM 140 MMOL/L (135-148)
[2016-11-16 08:59] LABS: BUN (BLOOD UREA NITROGEN) 47 MG/DL (6-23); CREATININE 6.51 MG/DL (0.70-1.30); GFR AFRICAN AMERICAN 9 ML/MIN (>=60); GFR NON AFRICAN AMERICAN 8 ML/MIN (>=60); GLUCOSE, SERUM 80 MG/DL (60-99); PHOSPHORUS, SERUM 5.7 MG/DL (2.5-4.5)
[2016-11-17 09:32] LABS: BASOPHILS 0.3 %; BASOPHILS ABSOLUTE 0.02 10/3/uL (0.0-0.16); EOSINOPHILS 3.2 %; EOSINOPHILS ABSOLUTE 0.22 10/3/uL (0.0-0.53); HEMATOCRIT 32.7 % (40.0-51.0); HEMOGLOBIN 10.4 g/dL (13.6-17.8); IMMATURE GRANULOCYTES 0.6 %; IMMATURE GRANULOCYTES ABSOLUTE 0.04 10/3/uL (0.0-0.11); LYMPHOCYTES ABSOLUTE 1.94 10/3/uL (0.67-4.30); MANUAL DIFF NO %; MEAN CORPUS HGB CONC 31.8 g/dL (32.0-36.0); MEAN CORPUSCULAR HEMOGLOB 25.4 pg (26.0-34.0); MEAN CORPUSCULAR VOLUME 79.8 fL (80-100); MEAN PLATELET VOLUME 11.3 fL (9.2-13.0); MONOCYTES 16.3 %; MONOCYTES ABSOLUTE 1.13 10/3/uL (0.21-1.20); NEUTROPHILS 51.6 %; NEUTROPHILS ABSOLUTE 3.58 10/3/uL (2.02-8.40); PLATELET COUNT 276 10/3/uL (150-400); RBC DISTRIBUTION WIDTH 16.7 % (12.0-16.0); WHITE BLOOD CELLS 6.9 10/3/uL (4.5-10.5)
[2016-11-17 09:52] LABS: ALBUMIN 2.6 G/DL (3.5-5.0); BUN (BLOOD UREA NITROGEN) 56 MG/DL (6-23); CALCIUM, SERUM 8.7 MG/DL (8.5-10.4); CHLORIDE, SERUM 102 MMOL/L (96-112); CO2 (CARBON DIOXIDE) 25 MMOL/L (24-34); GFR AFRICAN AMERICAN 8 ML/MIN (>=60); GFR NON AFRICAN AMERICAN 7 ML/MIN (>=60); GLUCOSE, SERUM 158 MG/DL (60-99); PHOSPHORUS, SERUM 5.9 MG/DL (2.5-4.5); POTASSIUM, SERUM 4.1 MMOL/L (3.5-5.3); SODIUM, SERUM 137 MMOL/L (135-148)
[2016-11-18] MEDS ORDERED: PEP20 PO (11:59)
[2016-11-18] MEDS ORDERED: SEROQUEL25 PO (11:59)
[2016-11-18] MEDS ORDERED: QUESLITE PO (11:59)
[2017-02-24] MEDS ORDERED: PHOSLO PO (15:18)
[2017-02-24] MEDS ORDERED: PRAVACHOL40 MG PO (15:19)
[2017-02-24] MEDS ORDERED: P5 PO (15:21)
[2017-02-24] MEDS ORDERED: PREDNISONE2.5 MG PO (15:21)
[2017-02-28] MEDS ORDERED: DSS PO (16:57)
[2017-02-28] MEDS ORDERED: BACTRONASA NAS (17:08)
[2017-02-28] MEDS ORDERED: ZOFRAN4 PO (17:32)
[2017-02-28] MEDS ORDERED: ULTRAM50 PO (17:32)
[2017-02-28] MEDS ORDERED: ACET500CAP PO (17:34)
[2017-02-28] MEDS ORDERED: COREG6 PO (17:42)
== END 2016-11-18 14:26 | disposition home or self-care (01) | DRG 391 ==
LOC: ER 13:44 → CDU1 15:49 → 4SO 17:30
PROVIDERS: Emergency Medicine; Internal Medicine Nephrology; Registered Nurse
PROC: 5A1D60Z (ICD-10-PCS; principal; 2016-11-14)
DX: K21.9 Gastro-esophageal reflux disease without esophagitis (principal); N18.6 End stage renal disease; E11.22 Type 2 diabetes mellitus with diabetic chronic kidney disease; K31.84 Gastroparesis; I12.0 Hypertensive chronic kidney disease with stage 5 chronic kidney disease or end stage renal disease; E11.43 Type 2 diabetes mellitus with diabetic autonomic (poly)neuropathy; L97.529 Non-pressure chronic ulcer of other part of left foot with unspecified severity; R41.0 Disorientation, unspecified; T42.8X5A Adverse effect of antiparkinsonism drugs and other central muscle-tone depressants, initial encounter; T43.3X5A Adverse effect of phenothiazine antipsychotics and neuroleptics, initial encounter; Y92.009 Unspecified place in unspecified non-institutional (private) residence as the place of occurrence of the external cause; R06.6 Hiccough; M06.9 Rheumatoid arthritis, unspecified; Z79.52 Long term (current) use of systemic steroids; Z99.2 Dependence on renal dialysis; Z79.82 Long term (current) use of aspirin; Z79.4 Long term (current) use of insulin; E66.9 Obesity, unspecified; Z68.32 Body mass index [BMI] 32.0-32.9, adult; F41.9 Anxiety disorder, unspecified; K44.9 Diaphragmatic hernia without obstruction or gangrene; Z86.010 Personal history of colon polyps; Z79.899 Other long term (current) drug therapy; K57.90 Diverticulosis of intestine, part unspecified, without perforation or abscess without bleeding; Z89.422 Acquired absence of other left toe(s); Z88.8 Allergy status to other drugs, medicaments and biological substances; E11.621 Type 2 diabetes mellitus with foot ulcer; E11.51 Type 2 diabetes mellitus with diabetic peripheral angiopathy without gangrene; E11.610 Type 2 diabetes mellitus with diabetic neuropathic arthropathy
CPT/HCPCS: 70450; 71010; 71020; 80053; 80069; 80076; 81001; 82140; 82962; 83036; 83605; 83735; 84484; 85025; 85610; 87040; 93005; 97161-GP; 99291; A9270-GY; C9113; G0257; J1630; J2543; J3370

== ENCOUNTER 2016-12-15 15:43 | Inpatient (IN) | payer OTHER ==
--- NOTE | ~2016-12-15 | HP ---
History And Physical [facility] [address] [place]. [address] NAME: KYLE KAPOOR : 47 STATUS : ADM IN [facility]#: [id number] AGE: 71 ADM/REG DATE : 12/15/16 MR#: [id number] REPORT SERV DATE: 12/16/16 DICTATED BY: EDWIN CHACON DATE: 12/15/16 REPORT STATUS : Draft TRANSCRIBED BY: MODBina DATE: 12/15/16 DATE OF ADMISSION: 12/15/2016 CHIEF COMPLAINT: Altered mental status. HISTORY OF PRESENT ILLNESS: Mr. Kapoor is a 71-year-old gentleman who has a past medical history of end-stage renal disease, on hemodialysis. He dialyses via left AV fistula. He went to hemodialysis today and dialyzed for two hours. He has a history that is relatively complicated and has a past medical history of chronic hiccups, rheumatoid arthritis, diabetes mellitus, and a history of polypharmacy with altered mental status. The patient was recently hospitalized at [facility] and discharged on 11/25/2016 for similar complaints to this presentation. History was given by the patient's as the patient was confused. She reports that over the past three or four days, the patient was complaining of increasing pain in his joints and hiccups. She gives out his medications and was giving him baclofen 10 mg p.o. b.i.d., and the patient took an oxycodone yesterday. Since he has been taking the increasing doses of the baclofen, she has noted that he has had some difficulty with mentation. He is alert and orientable to person and place but starts to confabulate and sometimes gets confused. He has also been noted to have some increasing twitching movements of his lower extremities. The patient's notes that he has had a cough that has been relatively nonproductive. She reports that he has not been running any fever at home and that he has not been complaining of any shortness of breath. He still makes urine everyday, she says he is passing his urine and has not been complaining of any infectious symptoms. He does have a sore on his left leg and has been having that dressed and has not noticed any change in the dressing. REVIEW OF SYSTEMS: CONSTITUTIONAL: He has been complaining of agitation and confusion. EYES: No change in vision. EARS, NOSE, AND THROAT: He has dentures but is not complaining of any difficulty swallowing or any change in his hearing. CARDIOVASCULAR: He denies any chest pain. RESPIRATORY: He denies any problems with breathing but reports he has a cough. : Denies any diarrhea. Still makes urine, and denies any dysuria. MUSCULOSKELETAL: Has rheumatoid arthritis and complains of his joint pains and increasing muscle twitches. SKIN: Denies any skin rashes. NEUROLOGICAL: He has the changes as noted in the history of present illness. PSYCHIATRY: He denies any current depression. ENDOCRINE: He has diabetes, and his blood sugars have been relatively well controlled. SOCIAL HISTORY: He denies any abuse of medications, not smoking, not drinking. FAMILY HISTORY: He does not have strong history of stroke, seizure, or end-stage renal disease. PAST MEDICAL HISTORY: As noted above, end-stage renal disease, polypharmacy, diabetes History And Physical [address] [address] NAME: KYLE KAPOOR : 47 STATUS : ADM IN [facility]#: [id number] AGE: 71 ADM/REG DATE : 12/15/16 MR#: [id number] REPORT SERV DATE: 12/16/16 DICTATED BY: EDWIN CHACON DATE: 12/15/16 REPORT STATUS : Draft TRANSCRIBED BY: LOGAN DATE: 12/15/16 mellitus, rheumatoid arthritis, and reflux esophagitis. HOME MEDICATIONS: Aspirin, carvedilol, Pepcid, Plaquenil, and . PHYSICAL EXAMINATION: GENERAL: This is a well-developed black gentleman, lying in bed with random muscle twitches. VITAL SIGNS: Blood pressure is 166/85, temperature is 98.3 degrees Fahrenheit, pulse is 98, respirations are 16, his oxygen saturation is 99%. HEENT: Normocephalic, atraumatic skull. Pupils are small but reactive and symmetric. Extraocular muscles are intact. Nares are clear with no discharge. Oropharynx has dentures in place with no observable thrush. The patient has normal hearing with no external discharge from his ear canals. NECK: Supple. No palpable lymphadenopathy. LUNGS: Clear. CARDIOVASCULAR: Regular rate with no rubs. AV fistula has positive thrill. ABDOMEN: Soft, nontender. EXTREMITIES: Showed no edema. Joints have full range of motion with some tenderness, but no erythema or bogginess to the joints. SKIN: Normal. The patient is alert and oriented x2. He provides some of his history but then wanders off in his discussion and confabulates a little bit. LABORATORY STUDIES: His INR is 1.3, his white count is 9.3, his hematocrit is 30.5. Sodium is 136, potassium is 4.2, chloride is 101, bicarbonate of 28, BUN of 40, creatinine of 4.94, magnesium of 2.2, calcium of 9.5. ASSESSMENT AND PLAN: 1. Altered mental status, suspect that this polypharmacy including his narcotic pain medications and his baclofen, antispasmodic. The plan is to hold the pain medications, monitor him overnight with a 24-hour sitter. If his altered mental status does not improve or deteriorates, we will have to get Neurology to see him and then have a head CT, but he recently had these consultations done that were negative. To also check for an infectious cause of his altered mental status, I will order blood and urine cultures and a urinalysis, which have not yet been done. 2. As far his end-stage renal disease goes, he is status post two hours of hemodialysis. Today, his lab work is okay. He is ventilating okay. I will re-asses in the morning for possible dialysis. 3. For his arthritis, we will not give him any strong narcotics, can use a low-dose Percocet and try and use Tylenol mostly and then to hold the baclofen and then re-asses to see if he improves. KEK/MODL Edwin Chacon MD History And Physical [address] [address] NAME: KYLE KAPOOR : 47 STATUS : ADM IN [facility]#: [id number] AGE: 71 ADM/REG DATE : 12/15/16 MR#: [id number] REPORT SERV DATE: 12/16/16 DICTATED BY: EDWIN CHACON DATE: 12/15/16 REPORT STATUS : Draft TRANSCRIBED BY: LOGAN DATE: 12/15/16 / [id number] CC: MD Rell Kim M.D.
[~2016-12-15 15:43] MED LIST changes: +ASA5GR PO; +NEUR100 PO; +PEP20 PO; +PROTONIX PO; +QUESLITE PO; +SEROQUEL25 PO
[2016-12-15 16:14] LABS: BASOPHILS 0.2 %; BASOPHILS ABSOLUTE 0.02 10/3/uL (0.0-0.16); EOSINOPHILS 1.6 %; EOSINOPHILS ABSOLUTE 0.15 10/3/uL (0.0-0.53); ER CBC TAT 0 Hrs 10 Mins; HEMATOCRIT 30.4 % (40.0-51.0); HEMOGLOBIN 9.6 g/dL (13.6-17.8); IMMATURE GRANULOCYTES 0.5 %; IMMATURE GRANULOCYTES ABSOLUTE 0.05 10/3/uL (0.0-0.11); LYMPHOCYTES 15.5 %; LYMPHOCYTES ABSOLUTE 1.43 10/3/uL (0.67-4.30); MEAN CORPUS HGB CONC 31.6 g/dL (32.0-36.0); MEAN CORPUSCULAR HEMOGLOB 25.7 pg (26.0-34.0); MEAN CORPUSCULAR VOLUME 81.3 fL (80-100); MEAN PLATELET VOLUME 9.8 fL (9.2-13.0); MONOCYTES 10.4 %; MONOCYTES ABSOLUTE 0.96 10/3/uL (0.21-1.20); NEUTROPHILS 71.8 %; NEUTROPHILS ABSOLUTE 6.64 10/3/uL (2.02-8.40); PLATELET COUNT 272 10/3/uL (150-400); RBC DISTRIBUTION WIDTH 17.3 % (12.0-16.0); RED CELL COUNT 3.74 10/6/uL (4.7-6.1); WHITE BLOOD CELLS 9.3 10/3/uL (4.5-10.5)
[2016-12-15 16:17] LABS: MANUAL DIFF NO %
[2016-12-15 16:31] LABS: BUN (BLOOD UREA NITROGEN) 40 MG/DL (6-23); CALCIUM, SERUM 9.5 MG/DL (8.5-10.4); CHEST PAIN PROFILE TAT 0 Hrs 27 Mins; CHLORIDE, SERUM 101 MMOL/L (96-112); CO2 (CARBON DIOXIDE) 28 MMOL/L (24-34); CREATININE 4.94 MG/DL (0.70-1.30); GFR AFRICAN AMERICAN 13 ML/MIN (>=60); GFR NON AFRICAN AMERICAN 11 ML/MIN (>=60); POTASSIUM, SERUM 4.2 MMOL/L (3.5-5.3); SODIUM, SERUM 136 MMOL/L (135-148); TROPONIN I 0.04 NG/ML (<0.05)
[2016-12-15 16:32] LABS: GLUCOSE, SERUM 75 MG/DL (60-99)
[2016-12-15 17:57] LABS: INTERNATIONAL NORMAL RATI 1.3 UNITS (-)
[2016-12-15] MEDS ORDERED: SPIRO25 PO (19:17)
[2016-12-15] MEDS ORDERED: PLAQ200B PO (19:20)
[2016-12-16 04:59] LABS: ASCORBIC ACID (UR NOT ORDER) NEG (NEG); BILIRUBIN, URINE NEGATIVE (NEG); KETONE, URINE NEGATIVE (NEG); LEUKOCYTE ESTERASE(NOT OR NEG (NEG); WBC (NOT ORDERED) (RFLEX) 1 (0-5)
[2016-12-16 06:13] LABS: A/G RATIO 0.7 (0.7-1.9); ALBUMIN 2.9 G/DL (3.5-5.0); ALKALINE PHOSPHATASE 82 U/L (45-117); BUN (BLOOD UREA NITROGEN) 48 MG/DL (6-23); CALCIUM, SERUM 9.1 MG/DL (8.5-10.4); CHLORIDE, SERUM 101 MMOL/L (96-112); CO2 (CARBON DIOXIDE) 26 MMOL/L (24-34); CREATININE 5.66 MG/DL (0.70-1.30); GFR AFRICAN AMERICAN 11 ML/MIN (>=60); GFR NON AFRICAN AMERICAN 9 ML/MIN (>=60); GLOBULIN 3.9 G/DL (2.5-4.1); GLUCOSE, SERUM 96 MG/DL (60-99); POTASSIUM, SERUM 4.4 MMOL/L (3.5-5.3); SGOT(AST) 12 U/L (5-40); SGPT(ALT) 7 U/L (5-65); SODIUM, SERUM 136 MMOL/L (135-148); TOTAL BILIRUBIN 0.8 MG/DL (0-1.2); TOTAL PROTEIN 6.8 G/DL (6.0-8.5)
[2016-12-16 06:57] LABS: BASOPHILS 0.3 %; EOSINOPHILS 2.7 %; EOSINOPHILS ABSOLUTE 0.2 10/3/uL (0.0-0.5); HEMATOCRIT 28.9 % (40.0-51.0); HEMOGLOBIN 9.4 g/dL (13.6-17.8); LYMPHOCYTES 19.4 %; LYMPHOCYTES ABSOLUTE 1.6 10/3/uL (0.7-4.3); MEAN CORPUS HGB CONC 32.5 g/dL (32.0-36.0); MEAN CORPUSCULAR HEMOGLOB 26.3 pg (26.0-34.0); MEAN CORPUSCULAR VOLUME 80.9 fL (80-100); MEAN PLATELET VOLUME 9.2 fL (6.8-10.8); MONOCYTES 13.9 %; MONOCYTES ABSOLUTE 1.2 10/3/uL (0.2-1.2); NEUTROPHILS 63.7 %; NEUTROPHILS ABSOLUTE 5.4 10/3/uL (2.0-8.4); PLATELET COUNT 211 10/3/uL (150-400); RED CELL COUNT 3.57 10/6/uL (4.7-6.1); WHITE BLOOD CELLS 8.4 10/3/uL (4.5-10.5)
[2016-12-16 06:58] LABS: MANUAL DIFF NO %
[2016-12-17 06:15] LABS: BASOPHILS 0.3 %; BASOPHILS ABSOLUTE 0.02 10/3/uL (0.0-0.16); EOSINOPHILS 3.1 %; EOSINOPHILS ABSOLUTE 0.22 10/3/uL (0.0-0.53); HEMATOCRIT 27.3 % (40.0-51.0); HEMOGLOBIN 8.8 g/dL (13.6-17.8); IMMATURE GRANULOCYTES 0.6 %; IMMATURE GRANULOCYTES ABSOLUTE 0.04 10/3/uL (0.0-0.11); LYMPHOCYTES 24.7 %; LYMPHOCYTES ABSOLUTE 1.74 10/3/uL (0.67-4.30); MEAN CORPUS HGB CONC 32.2 g/dL (32.0-36.0); MEAN CORPUSCULAR VOLUME 80.8 fL (80-100); MEAN PLATELET VOLUME 10.3 fL (9.2-13.0); MONOCYTES 18.6 %; MONOCYTES ABSOLUTE 1.31 10/3/uL (0.21-1.20); NEUTROPHILS 52.7 %; NEUTROPHILS ABSOLUTE 3.72 10/3/uL (2.02-8.40); PLATELET COUNT 228 10/3/uL (150-400); RED CELL COUNT 3.38 10/6/uL (4.7-6.1); WHITE BLOOD CELLS 7.1 10/3/uL (4.5-10.5)
[2016-12-17 06:16] LABS: MANUAL DIFF NO %
[2016-12-17 06:27] LABS: ALBUMIN 2.7 G/DL (3.5-5.0); CHLORIDE, SERUM 96 MMOL/L (96-112); CO2 (CARBON DIOXIDE) 23 MMOL/L (24-34); GLUCOSE, SERUM 88 MG/DL (60-99); POTASSIUM, SERUM 4.9 MMOL/L (3.5-5.3)
[2016-12-17 06:30] LABS: BUN (BLOOD UREA NITROGEN) 68 MG/DL (6-23); CREATININE 6.75 MG/DL (0.70-1.30); GFR AFRICAN AMERICAN 9 ML/MIN (>=60); GFR NON AFRICAN AMERICAN 8 ML/MIN (>=60); PHOSPHORUS, SERUM 4.6 MG/DL (2.5-4.5); SODIUM, SERUM 128 MMOL/L (135-148)
[2016-12-17] MEDS ORDERED: IBU400 PO (16:35)
[2017-02-24] MEDS ORDERED: PHOSLO PO (15:18)
[2017-02-24] MEDS ORDERED: PRAVACHOL40 MG PO (15:19)
[2017-02-24] MEDS ORDERED: PREDNISONE2.5 MG PO (15:21)
[2017-02-24] MEDS ORDERED: P5 PO (15:21)
[2017-02-28] MEDS ORDERED: DSS PO (16:57)
[2017-02-28] MEDS ORDERED: BACTRONASA NAS (17:08)
[2017-02-28] MEDS ORDERED: ULTRAM50 PO (17:32)
[2017-02-28] MEDS ORDERED: ZOFRAN4 PO (17:32)
[2017-02-28] MEDS ORDERED: ACET500CAP PO (17:34)
[2017-02-28] MEDS ORDERED: COREG6 PO (17:42)
== END 2016-12-17 17:08 | disposition home or self-care (01) | DRG 917 ==
LOC: ER 15:43 → 4SO 18:53
PROVIDERS: Emergency Medicine; Internal Medicine Nephrology; Nurse Practitioner
DX: T40.605A Adverse effect of unspecified narcotics, initial encounter (principal); N18.6 End stage renal disease; G93.41 Metabolic encephalopathy; E11.9 Type 2 diabetes mellitus without complications; Z99.2 Dependence on renal dialysis; K21.9 Gastro-esophageal reflux disease without esophagitis; K44.9 Diaphragmatic hernia without obstruction or gangrene
CPT/HCPCS: 71010; 80048; 80053; 80069; 81001; 82962; 83735; 84484; 85025; 85610; 85730; 93005; 99285; A9270-GY; G0257; J2405

== ENCOUNTER 2017-03-01 07:02 | Inpatient (IN) | payer OTHER ==
[~2017-03-01] VITALS: Ht 182.9 cm; Wt 111.3 kg
--- NOTE | ~2017-03-01 | CN ---
Consultation Report [facility] [address] [place]. [address] NAME: KYLE KAPOOR : 47 STATUS : [facility] [id number] AGE: 71 ADM/REG DATE : 03/01/17 MR#: [id number] REPORT SERV DATE: 03/09/17 DICTATED BY: CUONG WINN DATE: 03/08/17 REPORT STATUS : Draft TRANSCRIBED BY: MODBina DATE: 03/08/17 NEUROLOGY CONSULTATION/EVALUATION DATE OF CONSULTATION: 03/03/2017 REFERRING PHYSICIAN: Nephrology team and MICU Team. REASON FOR NEUROLOGICAL CONSULTATION: Encephalopathy, altered mental status worsening. HISTORY OF PRESENT ILLNESS: This is a 71-year-old male with known history of end-stage renal disease, on hemodialysis which was performed on 02/27/2017. The patient was readmitted on 03/01/2017 with confusion, fever, altered mental status. The history obtained from patient's was positive for patient taking an undisclosed amount of baclofen which he normally would take for intermittent hiccups he gets. The patient was noted to be confused on admission. With his confusion gradually worsening, neurological consultation was requested on 03/03/2017. At that time, the patient had episodes of screaming out a phrase that he repeated continuously. The patient was restless and at times combative. The patient was in the renal dialysis unit when he was initially evaluated by me. SOCIAL HISTORY: The patient is . He has two children. Stopped smoking 24 years ago. Does not drink alcohol. There is no history of drug use. PAST MEDICAL HISTORY: Significant for end-stage renal disease, on hemodialysis; history of osteomyelitis of the left foot; posterior tibial artery stent; coronary artery disease; ischemic cardiomyopathy, GERD; diabetes mellitus type 2; hypertension; hyperlipidemia. On admission, the patient's laboratory studies showed leukocytosis of WBC count 13.8. REVIEW OF SYSTEMS: Review of system was impossible to obtain from the patient, he was confused and the patient's family was not available. PHYSICAL EXAMINATION: VITAL SIGNS: Blood pressure was 107/51, pulse was 109, respirations 22, temperature was 99.8, FiO2 on 28% was ranging between 95 and 100. GENERAL: The patient was found to be restless, not following commands, repeating one phrase. The patient on inspection showed no evidence of acute trauma on evaluation of his head or neck. The patient had a right arm in a sling. CHEST: Symmetrical. LUNGS: Difficult to evaluate since the patient was screaming and appeared to have some expiratory wheezing. ABDOMEN: Soft, nontender. No organomegaly. EXTREMITIES: Left distal leg and bandages and a questionable missing 4th and 5th toe on the left. Skin was clear no ecchymosis, petechiae, or hemorrhages noted. Consultation Report [address] [place]. [address] NAME: KYLE KAPOOR : 47 STATUS : ADM IN PAT#: [id number] AGE: 71 ADM/REG DATE : 03/01/17 MR#: [id number] REPORT SERV DATE: 03/09/17 DICTATED BY: CUONG WINN DATE: 03/08/17 REPORT STATUS : Draft TRANSCRIBED BY: LOGAN DATE: 03/08/17 NEUROLOGICAL EXAMINATION: MENTAL STATUS EXAM: As mentioned above, the patient was restless and uncooperative, repeating one phrase which appeared to be quite intelligible, screaming "a bad girl." The patient did not follow commands or move with purpose. The patient was thrashing around in bed. CRANIAL NERVE EXAMINATION 2-12: The patient had small pupils 2 mm, no asymmetry and appeared to respond to light. Extraocular movements appeared full. There was no nystagmus. The patient was moving his eyes spontaneously. Upward and downward gaze was difficult to test since patient did not follow commands. Cranial nerve examination 2 through 12 as mentioned above, pupils small. The rest of the exam was difficult to perform. Corneal reflexes were present. There was no facial asymmetry. The tongue appeared midline. MOTOR EXAM: The patient is moving all four extremities except his right arm, which was in the sling appeared to have mild right wrist drop. Lower extremity exam: There was discoloration in distal legs as suggestive of chronic peripheral neuropathy. Exam was difficult to perform. Deep tendon reflexes were absent in lower extremities, trace in the left arm and right arm could not be tested properly in view of lack of cooperation and right arm was immobilized. LABORATORY STUDIES: Sodium 141, potassium 5.3, chloride 102, CO2 of 22, BUN 54, creatinine 8.7, glucose 154, magnesium 2.6. WBC count 8.9, hemoglobin 9.3, hematocrit 29.3. TSH was within normal limits. Platelet count 250,000. List of medications was reviewed, which contain albuterol, aspirin, calcium acetate, carvedilol, cefepime, dextrose, famotidine, subcu heparin 5000 units q.12, hydroxychloroquine 200 mg daily, insulin, leflunomide 10 mg daily, magnesium oxide, pravastatin, spironolactone, torsemide, vancomycin, prednisone 5 mg p.o. IMPRESSION: Worsening encephalopathy which is probably multifactorial, most likely caused metabolic encephalopathy with renal dysfunction. Possible underlying sepsis which may contribute to the patient's confusion, doubt presence of meningitis or encephalitis. Recent right shoulder surgery, rule out sepsis, rule out embolic shower. In view of patient's changes in behavior and repetition of one phrase, we would consider a presence of underlying nonconvulsive status epilepticus. End-stage renal disease, on hemodialysis, hypertension, and diabetes mellitus dispose the patient to have an increased risk of a stroke. Recommend an MRI of the brain if CT scan of the head is negative. The patient appeared to have some hypoxia on ABGs, rule out aspiration pneumonia. The patient's CT scan of the head is pending. We will obtain an EEG. An EEG was performed which showed significant diffuse abnormality secondary to metabolic encephalopathy with sharp configurations of biphasic and triphasic waveforms. This pattern is most frequently seen in renal or hepatic encephalopathy and repeated sharp activity is likewise seen in nonconvulsive metabolic status epilepticus. The patient was started on Keppra 1000 mg IV with no significant changes in the pattern, 1000 mg IV q.12 hours was started. The patient was sedated with Precedex. Recommend to give bolus of Keppra 1000 units after each dialysis to maintain levels. Keep systolic blood pressure over 120 to Consultation Report [place] [id number] [facility] [place]. [address] NAME: KYLE KAPOOR : 47 STATUS : [facility]#: [id number] AGE: 71 ADM/REG DATE : 03/01/17 MR#: [id number] REPORT SERV DATE: 03/09/17 DICTATED BY: CUONG WINN DATE: 03/08/17 REPORT STATUS : Draft TRANSCRIBED BY: MODL DATE: 03/08/17 avoid cerebral hypoperfusion. If patient's symptoms do not subside, recommend to obtain a lumbar puncture to rule out a DREDGE MATE infection. This was a critical care visit, total time 49 minutes with additional 35 minutes for EEG monitoring and administration of IV medications. Total time 138 minutes. LUZ/LOGAN Cuong Winn MD / [id number] CC: Haleigh Mendoza M.D.
--- NOTE | ~2017-03-01 | EEG ---
Electroencephalogram [place] [address] [place]. [address] NAME: KYLE KAPOOR : 47 STATUS : DIS IN PAT#: [id number] AGE: 71 ADM/REG DATE : 03/01/17 MR#: [id number] REPORT SERV DATE: 03/10/17 DICTATED BY: CUONG WINN DATE: 03/10/17 REPORT STATUS : Draft TRANSCRIBED BY: LOGAN DATE: 03/10/17 INTERPRETING PHYSICIAN: Cuong Winn MD REASON FOR EEG: Encephalopathy, altered mental status, repeated episodes of stereotypic behavior and screaming were observed prior and during EEG. The patient did not follow commands. History of end-stage renal disease, on hemodialysis. DESCRIPTION: 23 surface electrodes, 10-20 international placement was used. The patient was noted to be combative, restless, unresponsive to verbal stimuli. Photic stimulation was performed. Video monitoring was utilized. This EEG was severely abnormal with continuous disorganization, slowing, and presence of continuous biphasic and triphasic waveforms with sharper configuration. No significant asymmetry of the activity was observed. The patient did not follow commands or respond to verbal stimuli. Intermittent spike activity was seen in the anterior head regions. This activity was bilaterally synchronous, most prominent in frontal and central areas. The patient's radiation monitor showed sinus tachycardia, heart rate of approximately 130 beats per minute. During the EEG, the patient was given 1000 mg of Keppra IV. This was a prolonged recording with monitoring of patient's response to anticonvulsant medications. Bilaterally synchronous spike in wave activity was also observed. Sharp in appearance triphasic waveforms were present continuously during this study. Slight attenuation and improvement with decrease of paroxysmal activity were seen after the patient received 1000 mg of IV Keppra. IMPRESSION: MARKEDLY ABNORMAL EEG CHARACTERIZED BY PRESENCE OF METABOLIC STATUS EPILEPTICUS. SLIGHT IMPROVEMENT WAS NOTED SHORTLY FOLLOWING THE ADMINISTRATION OF IV LEVETIRACETAM-KEPPRA. CLINICAL CORRELATION IS RECOMMENDED. LUZ/LOGAN Cuong Winn MD / [id number] CC: Haleigh Mendoza, M.D.
--- NOTE | ~2017-03-01 | CN ---
Consultation Report [facility] [address] [place]. [address] NAME: KYLE KAPOOR : 47 STATUS : ADM IN [facility]#: [id number] AGE: 71 ADM/REG DATE : 03/01/17 MR#: [id number] REPORT SERV DATE: 03/03/17 DICTATED BY: MARCO RODRIGUES DATE: 03/03/17 REPORT STATUS : Draft TRANSCRIBED BY: MODL DATE: 03/03/17 INFECTIOUS DISEASES CONSULTATION DATE OF CONSULTATION: REASON FOR REFERRAL: Evaluation and treatment of worsening signs of sepsis. HISTORY OF PRESENT ILLNESS: This is a 71-year-old male with a history of hypertension, diabetes mellitus, end-stage renal disease for which he is on hemodialysis. He fell and suffered a proximal right humeral fracture about five to six days ago and underwent open reduction and internal fixation. He was discharged to home, but returned within 24 hours with decreased mental status and confusion. He was thought to possibly have a bad reaction to a combination of baclofen and opiates given after his surgery. He had a low-grade fever of 100.7, elevated white count of 13,000, so a concern was raised for infection. A procalcitonin was done, it was just over 7. He had cultures of his blood taken and has been started on vancomycin and cefepime. Despite almost 48 hours of that, his temperature is slightly better, but white count is still elevated and his procalcitonin is going up. His confusion remains so far and has only improved minimally. He does not really produce much urine, and blood cultures thus far negative. His wound on his right arm from the surgery appears to be healing well and does not appear to be infected. He also has had some trauma to toes on his left foot, but that is wrapped up, but none of that appears to be infected. He has a benign abdominal exam. No signs of cellulitis anywhere. Imaging of his chest does show bilateral interstitial infiltrates worse in the lower lung chilel. He has a wet sounding cough and heavy coarse rhonchi in all lung chilel, and he was observed to have aspirated yesterday. PAST MEDICAL HISTORY: Otherwise unremarkable. MEDICATIONS: As described above. ALLERGIES: HE HAS NO KNOWN ANTIMICROBIAL ALLERGIES. 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 He is retired, living in this area now. He is , nonsmoker. No history of alcohol or substance abuse. FAMILY HISTORY: Noncontributory. PHYSICAL EXAMINATION: GENERAL: He is an elderly male, lying in bed, periodically yelling almost unintelligible words, but similar sounding words over and over again, and thrashing in bed, not responding at all to any speech or commands. VITAL SIGNS: His temperature was mildly elevated when he came in, as previously stated, 100.6, it was up to 99.8 early this morning, 98.7 at present in dialysis with pulse of 109; Consultation Report [facility] [address] [facility] [place]. [address] NAME: KYLE KAPOOR : 47 STATUS : ADM IN [facility]#: [id number] AGE: 71 ADM/REG DATE : 03/01/17 MR#: [id number] REPORT SERV DATE: 03/03/17 DICTATED BY: MARCO RODRIGUES DATE: 03/03/17 REPORT STATUS : Draft TRANSCRIBED BY: LOGAN DATE: 03/03/17 respirations 20; blood pressure 104/54. His weight is 104 kg. HEENT: Sclerae clear. Unable to really visualize the mouth. LUNGS: There are heavy bilateral rhonchi as previously mentioned. HEART: Regular rate and rhythm. ABDOMEN: Soft. No response to palpation. Positive bowel sounds are heard. EXTREMITIES: Foot wound as previously described. No signs of cellulitis. Wound on the right upper arm does not appear to be infected. LABORATORY DATA: His white blood cell count today is 13.5, hematocrit 29.3, normal differential of the white blood cell count, platelets 250. BUN and creatinine 54 and 8.7 just prior to dialysis. Procalcitonin which was 7.2 when he came in, it is 40.63 this morning. IMPRESSION: As a source of infection, I would suspect pneumonia. Workup for other source so far has been negative and he does have an abnormal chest x-ray, abnormal exam, and has been observed to have aspirated, so this may be an aspiration pneumonitis. He has likely aspirated multiple times since this all started. The diffuse nature of infiltrates also raise concern for an atypical organism like mycoplasma. I suspect the mental status changes though may be exacerbated by infection. They are ultimately mostly due to medication. RECOMMENDATIONS: 1. We will change the Zosyn and azithromycin to cover the above-mentioned possibilities causing pneumonia. 2. Follow up cultures. 3. Follow the patient with you. I appreciate very much your consulting on this patient. SHARON Marco Rodrigues M.D. / [id number] CC: Haleigh Mendoza M.D. Stuart G Ginther, M.D.
--- NOTE | ~2017-03-01 | HP ---
History And Physical [place] [id number] [place]. [address] NAME: KYLE KAPOOR : 47 STATUS : ADM IN PAT#: [id number] AGE: 71 ADM/REG DATE : 03/01/17 MR#: [id number] REPORT SERV DATE: 03/01/17 DICTATED BY: FRANK BURCH DATE: 03/01/17 REPORT STATUS : Draft TRANSCRIBED BY: MODL DATE: 03/01/17 DATE OF ADMISSION: 03/01/2017 CHIEF COMPLAINT: Altered mental status and fever. BRIEF HISTORY OF PRESENT ILLNESS: A 71-year-old black male, end-stage renal disease, hemodialysis on Thursday, Thursday, and Thursday, right upper extremity AV fistula, at [facility], with additional history of diabetes mellitus type 2, hypertension, intractable hiccups who had a recent right proximal humeral fracture requiring a surgical repair by Dr. Coats on 02/26/2017. The patient discharged just yesterday in stable condition only to develop altered mental status after taking 2 doses of baclofen due to intractable hiccups. Patient subsequently was difficult to arouse and because of his 's inability to care for patient under those conditions brought him into the ER where he was noted to have a temperature of 100.6, a white count elevation of 13.8, and a chest x-ray revealing bilateral basilar infiltrates. The patient was subsequently admitted for further evaluation and management of above-mentioned conditions. PAST MEDICAL HISTORY: 1. End-stage renal disease, hemodialysis on Thursday, Thursday, and Thursday at [facility], via right upper extremity AV fistula. 2. Diabetes mellitus type 2. 3. Hypertension. 4. Rheumatoid arthritis. 5. Reflux esophagitis. 6. Intractable hiccups. 7. Proximal right humeral fracture with repair, 02/26/2017. PAST SURGICAL HISTORY: Toe amputation, history of peritoneal dialysis catheter placement as well as right upper extremity AV fistula placement, and right proximal humeral repair, 02/26/2017. SOCIAL HISTORY: The patient is . Previously had the [employer] service in [place]. Currently retired. Denies tobacco, alcohol, or illicit drug use. FAMILY HISTORY: No history of renal disease. REVIEW OF SYSTEMS: Negative except as mentioned in the history of present illness. PHYSICAL EXAMINATION: VITAL SIGNS: Temperature is 100.6, blood pressure 122/57, pulse is 100, respiratory rate 18, O2 saturation 99% on room air. GENERAL: Well-developed but lethargic black male, arousable, no acute distress. HEENT: Normocephalic and atraumatic. Pupils are equal, round, and reactive to light. Mucous membranes are slightly dry. NECK: Supple. No thyromegaly. History And Physical [address] [place]. [address] NAME: KYLE KAPOOR : 47 STATUS : ADM IN PAT#: [id number] AGE: 71 ADM/REG DATE : 03/01/17 MR#: [id number] REPORT SERV DATE: 03/01/17 DICTATED BY: FRANK BURCH DATE: 03/01/17 REPORT STATUS : Draft TRANSCRIBED BY: LOGAN DATE: 03/01/17 CARDIOVASCULAR: Regular rate and rhythm. RESPIRATORY: Clear to auscultation bilaterally with decreased breath sounds at bases. ABDOMEN: Soft, nontender, and nondistended. Positive bowel sounds. EXTREMITIES: No clubbing or cyanosis of lower extremities. Right upper extremity in a sling with right upper extremity AV fistula with positive bruit and thrill. NEURO: Lethargic. PSYCH: Lethargic. LABORATORY DATA: Sodium 133, potassium 4.8, chloride 98, bicarb 25, BUN 62, creatinine 8.8, glucose is 107, calcium 8.9, albumin 2.8. LFTs are normal. White count 13.8, hemoglobin is 9.3, platelet count is 218. Chest x-ray, bilateral basilar infiltrates. Procalcitonin 7.2, lactic acid 1.2. Blood cultures are pending. ASSESSMENT/PLAN: 1. End-stage renal disease. Resume hemodialysis Thursday, Thursday, Thursday. Protect right arm due to fistula and recent fracture. 2. Fever and leukocytosis with an elevated white count of 13.8 and a procalcitonin of 7.2. Concern for bacterial infection with recent right proximal humeral fracture on 02/26/2017. Consult Dr. Coats for evaluation. Check blood cultures as well as urine cultures. Empiric vancomycin and cefepime. 3. Encephalopathy. Extra dose of baclofen plus narcotics due to #2. Check ABG. Hold any [employer] SUPER[employer] medications. BiPAP if necessary. 4. Diabetes mellitus type 2. Sliding scale insulin. Accu-Cheks and half dose Lantus. 5. Hypertension. Home medications. 6. Prophylaxis. Heparin subcu b.i.d. Updated at bedside. All questions answered. NCP/MODL Frank Burch M.D. / [id number] CC: Cosmo Coats M.D.
--- NOTE | ~2017-03-01 | PRECARD ---
H&P [address] [place]. [address] NAME: KYLE KAPOOR : 47 STATUS : ADM IN [facility]#: [id number] AGE: 71 ADM/REG DATE : 03/01/17 MR#: [id number] REPORT SERV DATE: 03/07/17 DICTATED BY: MARCO MARTINES DATE: 03/07/17 REPORT STATUS : Draft TRANSCRIBED BY: LOGAN DATE: 03/07/17 DATE OF ADMISSION: 03/01/2017 HISTORY OF PRESENT ILLNESS: Mr. Kyle Kapoor is a 71-year-old gentleman, who has been hospitalized with aspiration pneumonia following right shoulder surgery. Cardiology is consulted for nonsustained ventricular tachycardia. Mr. Kapoor hurt his right shoulder about a year ago. He had no improvement with medical therapy. He subsequently underwent surgery for right proximal humerus fracture on 02/[address] Coats. Postoperatively, he developed aspiration pneumonia. He subsequently developed encephalopathy with improvement. He also has a history of renal failure. He is undergoing hemodialysis while hospitalized. Last night, he had a 14-second run of nonsustained ventricular tachycardia, rate of about 160, no symptoms at all. He denies chest pain. There is no orthopnea or PND. He has seen Dr. Gotti in the [facility]. I do not have access to those records yet. PAST MEDICAL HISTORY: 1. End-stage renal disease, now on hemodialysis. 2. Long history of intractable hiccups. 3. Diabetes. 4. Rheumatoid arthritis. 5. Proximal right humeral fracture, repaired on 02/26/2017. 6. History of toe amputation. 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 No alcohol or tobacco. FAMILY HISTORY: Noncontributory. PHYSICAL EXAMINATION: VITAL SIGNS: Blood pressure about 120/70, heart rate about 90. GENERAL: No distress. Comfortable. LUNGS: Clear. CARDIAC: Decreased heart sounds without murmur or rub. ABDOMEN: No obvious masses. EXTREMITIES: Have moderate edema. LABORATORY DATA: 1. BUN is 15, creatinine 5.8. Troponin 0.05. H&P [address] [place]. [address] NAME: KYLE KAPOOR : 47 STATUS : ADM IN PAT#: [id number] AGE: 71 ADM/REG DATE : 03/01/17 MR#: [id number] REPORT SERV DATE: 03/07/17 DICTATED BY: MARCO MARTINES DATE: 03/07/17 REPORT STATUS : Draft TRANSCRIBED BY: LOGAN DATE: 03/07/17 2. EKG, sinus tachycardia with LVH repolarization changes, IVCD and left axis deviation, possible left anterior fascicular block. 3. Telemetry demonstrated a sinus rhythm now, previously a nonsustained ventricular tachycardia, again no symptoms. ASSESSMENT: Mr. Kapoor is a very nice 71-year-old gentleman with renal failure, on dialysis; diabetes; rheumatoid arthritis with asymptomatic nonsustained ventricular tachycardia, 14 beats. PLAN: 1. I will obtain the records from Dr. Gotti, I will obtain echocardiogram now to assess the left ventricular function. 2. I will empirically add beta-blockade as well. ALEX/LOGAN Marco Martines M.D. / [id number] CC: Haleigh Mendoza M.D.
[~2017-03-01 07:02] MED LIST changes: +ACET500CAP PO; +BACTRONASA NAS; +DSS PO; +IBU400 PO; +P5 PO; +PREDNISONE2.5 MG PO; +SPIRO25 PO; +ULTRAM50 PO; +ZOFRAN4 PO
[2017-03-01 08:09] LABS: BASOPHILS 0.1 %; BASOPHILS ABSOLUTE 0.02 10/3/uL (0.0-0.16); EOSINOPHILS 1.3 %; EOSINOPHILS ABSOLUTE 0.18 10/3/uL (0.0-0.53); HEMATOCRIT 29.1 % (40.0-51.0); HEMOGLOBIN 9.3 g/dL (13.6-17.8); IMMATURE GRANULOCYTES 0.4 %; IMMATURE GRANULOCYTES ABSOLUTE 0.06 10/3/uL (0.0-0.11); LYMPHOCYTES 10.4 %; LYMPHOCYTES ABSOLUTE 1.44 10/3/uL (0.67-4.30); MANUAL DIFF NO %; MEAN CORPUSCULAR HEMOGLOB 27.2 pg (26.0-34.0); MEAN CORPUSCULAR VOLUME 85.1 fL (80-100); MEAN PLATELET VOLUME 10.3 fL (9.2-13.0); MONOCYTES 10.8 %; NEUTROPHILS ABSOLUTE 10.63 10/3/uL (2.02-8.40); PLATELET COUNT 218 10/3/uL (150-400); RED CELL COUNT 3.42 10/6/uL (4.7-6.1); WHITE BLOOD CELLS 13.8 10/3/uL (4.5-10.5)
[2017-03-01 08:21] LABS: A/G RATIO 0.7 (0.7-1.9); ALBUMIN 2.8 G/DL (3.5-5.0); CALCIUM, SERUM 8.9 MG/DL (8.5-10.4); CHLORIDE, SERUM 98 MMOL/L (96-112); CO2 (CARBON DIOXIDE) 25 MMOL/L (24-34); GLOBULIN 4.1 G/DL (2.5-4.1); GLUCOSE, SERUM 107 MG/DL (60-99); POTASSIUM, SERUM 4.8 MMOL/L (3.5-5.3); SGOT(AST) 21 U/L (5-40); SODIUM, SERUM 133 MMOL/L (135-148); TOTAL PROTEIN 6.9 G/DL (6.0-8.5)
[2017-03-01 08:22] LABS: ALKALINE PHOSPHATASE 103 U/L (45-117); BUN (BLOOD UREA NITROGEN) 62 MG/DL (6-23); CREATININE 8.77 MG/DL (0.70-1.30); GFR AFRICAN AMERICAN 6 ML/MIN (>=60); GFR NON AFRICAN AMERICAN 5 ML/MIN (>=60); SGPT(ALT) < 6 U/L (5-65); TOTAL BILIRUBIN 0.3 MG/DL (0-1.2)
[2017-03-01 08:22] LABS: LACTATE 1.2 MMOL/L (0.3-2.4)
[2017-03-01] MEDS ORDERED: BACLOFEN20 MG PO (10:00)
[2017-03-01 11:42] LABS: ALLENS TEST Pos; BE (BASE EXCESS) -0.5 MEQ/L (0 +/- 2.5); CARBOXYHEMOGLOBIN 1.2 % (0-3); DEVICE NC; HCO3 (ACTUAL BICARBONATE) 24.1 MEQ/L (23-27); HEMOBLOGIN CONTENT 10.2 G/DL (14-18); INSTRUMENT SERIAL # 8083; METHEMOGLOBIN 0.3 % (0-3); O2 CONTENT 13.6 VOL% (18-24); PCO2 (CO2 TENSION) 39 MMHG (35-45); PO2 (O2 TENSION) 83 MMHG (79-93); SAMPLE Arterial; pH 7.41 (7.37-7.43)
[2017-03-02 15:47] LABS: ALLENS TEST Pos; BE (BASE EXCESS) -8.4 MEQ/L (0 +/- 2.5); CARBOXYHEMOGLOBIN 0.7 % (0-3); DEVICE NC; HCO3 (ACTUAL BICARBONATE) 17.8 MEQ/L (23-27); HEMOBLOGIN CONTENT 10.1 G/DL (14-18); INSTRUMENT SERIAL # 35151; METHEMOGLOBIN 0.1 % (0-3); O2 CONTENT 13.6 VOL% (18-24); OPERATOR ID 32214; PCO2 (CO2 TENSION) 40 MMHG (35-45); PO2 (O2 TENSION) 88 MMHG (79-93); SAMPLE Arterial; pH 7.27 (7.37-7.43)
[2017-03-02 17:03] LABS: BASOPHILS 0.2 %; BASOPHILS ABSOLUTE 0.02 10/3/uL (0.0-0.16); EOSINOPHILS 0.7 %; EOSINOPHILS ABSOLUTE 0.09 10/3/uL (0.0-0.53); HEMOGLOBIN 9.4 g/dL (13.6-17.8); IMMATURE GRANULOCYTES 0.5 %; IMMATURE GRANULOCYTES ABSOLUTE 0.06 10/3/uL (0.0-0.11); LYMPHOCYTES ABSOLUTE 0.73 10/3/uL (0.67-4.30); MEAN CORPUS HGB CONC 32.4 g/dL (32.0-36.0); MEAN CORPUSCULAR HEMOGLOB 27.6 pg (26.0-34.0); MEAN CORPUSCULAR VOLUME 85.3 fL (80-100); MEAN PLATELET VOLUME 9.7 fL (9.2-13.0); MONOCYTES ABSOLUTE 0.73 10/3/uL (0.21-1.20); NEUTROPHILS 86.6 %; NEUTROPHILS ABSOLUTE 10.55 10/3/uL (2.02-8.40); PLATELET COUNT 230 10/3/uL (150-400); RBC DISTRIBUTION WIDTH 17.2 % (12.0-16.0); WHITE BLOOD CELLS 12.2 10/3/uL (4.5-10.5)
[2017-03-02 17:07] LABS: MANUAL DIFF NO %
[2017-03-02 17:55] LABS: A/G RATIO 0.6 (0.7-1.9); ALBUMIN 2.5 G/DL (3.5-5.0); ALKALINE PHOSPHATASE 112 U/L (45-117); CALCIUM, SERUM 9.3 MG/DL (8.5-10.4); CHLORIDE, SERUM 99 MMOL/L (96-112); GLOBULIN 4.4 G/DL (2.5-4.1); GLUCOSE, SERUM 121 MG/DL (60-99); SGOT(AST) 139 U/L (5-40); SGPT(ALT) 8 U/L (5-65); SODIUM, SERUM 135 MMOL/L (135-148); TOTAL BILIRUBIN 0.4 MG/DL (0-1.2); TOTAL PROTEIN 6.9 G/DL (6.0-8.5)
[2017-03-02 17:58] LABS: BUN (BLOOD UREA NITROGEN) 89 MG/DL (6-23); CO2 (CARBON DIOXIDE) 18 MMOL/L (24-34); FOLATE 24.3 NG/ML (>5.2); GFR AFRICAN AMERICAN 4 ML/MIN (>=60); GFR NON AFRICAN AMERICAN 4 ML/MIN (>=60); PHOSPHORUS, SERUM 9.4 MG/DL (2.5-4.5); POTASSIUM, SERUM 6.2 MMOL/L (3.5-5.3); ULTRASENSITIVE TSH 0.467 MCIU/ML (0.358-3.740)
[2017-03-03 04:49] LABS: BASOPHILS 0.1 %; BASOPHILS ABSOLUTE 0.02 10/3/uL (0.0-0.16); EOSINOPHILS ABSOLUTE 0.13 10/3/uL (0.0-0.53); HEMATOCRIT 29.3 % (40.0-51.0); HEMOGLOBIN 9.3 g/dL (13.6-17.8); IMMATURE GRANULOCYTES 0.6 %; IMMATURE GRANULOCYTES ABSOLUTE 0.08 10/3/uL (0.0-0.11); LYMPHOCYTES 14.8 %; MEAN CORPUS HGB CONC 31.7 g/dL (32.0-36.0); MEAN CORPUSCULAR HEMOGLOB 27.3 pg (26.0-34.0); MEAN CORPUSCULAR VOLUME 85.9 fL (80-100); MEAN PLATELET VOLUME 10.7 fL (9.2-13.0); MONOCYTES 15.4 %; MONOCYTES ABSOLUTE 2.08 10/3/uL (0.21-1.20); NEUTROPHILS 68.1 %; NEUTROPHILS ABSOLUTE 9.21 10/3/uL (2.02-8.40); PLATELET COUNT 250 10/3/uL (150-400); RED CELL COUNT 3.41 10/6/uL (4.7-6.1); WHITE BLOOD CELLS 13.5 10/3/uL (4.5-10.5)
[2017-03-03 04:50] LABS: MANUAL DIFF NO %
[2017-03-03 05:06] LABS: ALBUMIN 2.8 G/DL (3.5-5.0); BUN (BLOOD UREA NITROGEN) 54 MG/DL (6-23); CALCIUM, SERUM 9.3 MG/DL (8.5-10.4); CHLORIDE, SERUM 102 MMOL/L (96-112); CO2 (CARBON DIOXIDE) 22 MMOL/L (24-34); GFR AFRICAN AMERICAN 6 ML/MIN (>=60); GFR NON AFRICAN AMERICAN 6 ML/MIN (>=60); GLUCOSE, SERUM 154 MG/DL (60-99); PHOSPHORUS, SERUM 8.9 MG/DL (2.5-4.5); POTASSIUM, SERUM 5.3 MMOL/L (3.5-5.3); SODIUM, SERUM 141 MMOL/L (135-148)
[2017-03-03 05:17] LABS: PROCALCITONIN 40.63 ng/mL (<0.5)
[2017-03-03 10:00] LABS: FREE T4 1.07 NG/DL (0.76-1.46); ULTRASENSITIVE TSH 0.768 MCIU/ML (0.358-3.740)
[2017-03-04 04:35] LABS: BASOPHILS 0.1 %; BASOPHILS ABSOLUTE 0.01 10/3/uL (0.0-0.16); EOSINOPHILS 0.1 %; EOSINOPHILS ABSOLUTE 0.01 10/3/uL (0.0-0.53); HEMATOCRIT 28.1 % (40.0-51.0); IMMATURE GRANULOCYTES 0.6 %; IMMATURE GRANULOCYTES ABSOLUTE 0.07 10/3/uL (0.0-0.11); LYMPHOCYTES 10.1 %; LYMPHOCYTES ABSOLUTE 1.21 10/3/uL (0.67-4.30); MANUAL DIFF NO %; MEAN CORPUSCULAR HEMOGLOB 27.4 pg (26.0-34.0); MEAN CORPUSCULAR VOLUME 85.4 fL (80-100); MEAN PLATELET VOLUME 9.8 fL (9.2-13.0); MONOCYTES 10.9 %; MONOCYTES ABSOLUTE 1.31 10/3/uL (0.21-1.20); NEUTROPHILS 78.2 %; NEUTROPHILS ABSOLUTE 9.36 10/3/uL (2.02-8.40); PLATELET COUNT 232 10/3/uL (150-400); RBC DISTRIBUTION WIDTH 17.1 % (12.0-16.0); RED CELL COUNT 3.29 10/6/uL (4.7-6.1)
[2017-03-04 04:42] LABS: ALBUMIN 2.4 G/DL (3.5-5.0); BUN (BLOOD UREA NITROGEN) 43 MG/DL (6-23); CALCIUM, SERUM 9.9 MG/DL (8.5-10.4); CHLORIDE, SERUM 106 MMOL/L (96-112); CO2 (CARBON DIOXIDE) 22 MMOL/L (24-34); CREATININE 6.58 MG/DL (0.70-1.30); GFR AFRICAN AMERICAN 9 ML/MIN (>=60); GFR NON AFRICAN AMERICAN 8 ML/MIN (>=60); GLUCOSE, SERUM 203 MG/DL (60-99); PHOSPHORUS, SERUM 7.2 MG/DL (2.5-4.5); POTASSIUM, SERUM 4.8 MMOL/L (3.5-5.3); SODIUM, SERUM 142 MMOL/L (135-148)
[2017-03-06 07:05] LABS: BASOPHILS 0.1 %; BASOPHILS ABSOLUTE 0.01 10/3/uL (0.0-0.16); EOSINOPHILS 1.6 %; EOSINOPHILS ABSOLUTE 0.14 10/3/uL (0.0-0.53); HEMATOCRIT 28.6 % (40.0-51.0); HEMOGLOBIN 9.1 g/dL (13.6-17.8); IMMATURE GRANULOCYTES 0.7 %; IMMATURE GRANULOCYTES ABSOLUTE 0.06 10/3/uL (0.0-0.11); LYMPHOCYTES 18.3 %; LYMPHOCYTES ABSOLUTE 1.64 10/3/uL (0.67-4.30); MEAN CORPUS HGB CONC 31.8 g/dL (32.0-36.0); MEAN CORPUSCULAR HEMOGLOB 26.8 pg (26.0-34.0); MEAN CORPUSCULAR VOLUME 84.4 fL (80-100); MEAN PLATELET VOLUME 9.8 fL (9.2-13.0); MONOCYTES 9.5 %; MONOCYTES ABSOLUTE 0.85 10/3/uL (0.21-1.20); NEUTROPHILS 69.8 %; NEUTROPHILS ABSOLUTE 6.27 10/3/uL (2.02-8.40); PLATELET COUNT 234 10/3/uL (150-400); RBC DISTRIBUTION WIDTH 17.2 % (12.0-16.0); RED CELL COUNT 3.39 10/6/uL (4.7-6.1)
[2017-03-06 07:06] LABS: MANUAL DIFF NO %
[2017-03-06 07:23] LABS: ALBUMIN 2.3 G/DL (3.5-5.0); CHLORIDE, SERUM 101 MMOL/L (96-112); CO2 (CARBON DIOXIDE) 26 MMOL/L (24-34); GLUCOSE, SERUM 224 MG/DL (60-99); POTASSIUM, SERUM 4.6 MMOL/L (3.5-5.3); SODIUM, SERUM 138 MMOL/L (135-148)
[2017-03-06 07:24] LABS: BUN (BLOOD UREA NITROGEN) 72 MG/DL (6-23); CREATININE 7.81 MG/DL (0.70-1.30); GFR AFRICAN AMERICAN 7 ML/MIN (>=60); GFR NON AFRICAN AMERICAN 6 ML/MIN (>=60); PHOSPHORUS, SERUM 5.9 MG/DL (2.5-4.5)
[2017-03-07 00:06] LABS: ALBUMIN 2.3 G/DL (3.5-5.0); BUN (BLOOD UREA NITROGEN) 51 MG/DL (6-23); CALCIUM, SERUM 8.3 MG/DL (8.5-10.4); CHLORIDE, SERUM 103 MMOL/L (96-112); CO2 (CARBON DIOXIDE) 26 MMOL/L (24-34); CREATININE 5.85 MG/DL (0.70-1.30); GFR AFRICAN AMERICAN 10 ML/MIN (>=60); GFR NON AFRICAN AMERICAN 9 ML/MIN (>=60); GLUCOSE, SERUM 242 MG/DL (60-99); PHOSPHORUS, SERUM 3.2 MG/DL (2.5-4.5); POTASSIUM, SERUM 3.9 MMOL/L (3.5-5.3); SODIUM, SERUM 138 MMOL/L (135-148)
[2017-03-07 00:08] LABS: TROPONIN I 0.05 NG/ML (<0.05)
[2017-03-09 13:50] LABS: BASOPHILS 0.2 %; BASOPHILS ABSOLUTE 0.02 10/3/uL (0.0-0.16); EOSINOPHILS 5.8 %; EOSINOPHILS ABSOLUTE 0.48 10/3/uL (0.0-0.53); HEMATOCRIT 27.3 % (40.0-51.0); HEMOGLOBIN 8.8 g/dL (13.6-17.8); IMMATURE GRANULOCYTES 3.7 %; IMMATURE GRANULOCYTES ABSOLUTE 0.31 10/3/uL (0.0-0.11); LYMPHOCYTES ABSOLUTE 1.16 10/3/uL (0.67-4.30); MANUAL DIFF NO %; MEAN CORPUS HGB CONC 32.2 g/dL (32.0-36.0); MEAN CORPUSCULAR HEMOGLOB 26.9 pg (26.0-34.0); MEAN CORPUSCULAR VOLUME 83.5 fL (80-100); MEAN PLATELET VOLUME 10.1 fL (9.2-13.0); MONOCYTES 9.7 %; NEUTROPHILS 66.6 %; NEUTROPHILS ABSOLUTE 5.51 10/3/uL (2.02-8.40); PLATELET COUNT 260 10/3/uL (150-400); RBC DISTRIBUTION WIDTH 17.7 % (12.0-16.0); RED CELL COUNT 3.27 10/6/uL (4.7-6.1); WHITE BLOOD CELLS 8.3 10/3/uL (4.5-10.5)
[2017-03-09 14:15] LABS: ALBUMIN 2.3 G/DL (3.5-5.0); CHLORIDE, SERUM 99 MMOL/L (96-112); GLUCOSE, SERUM 254 MG/DL (60-99); POTASSIUM, SERUM 4.6 MMOL/L (3.5-5.3); SODIUM, SERUM 132 MMOL/L (135-148)
[2017-03-09 14:17] LABS: BUN (BLOOD UREA NITROGEN) 85 MG/DL (6-23); CO2 (CARBON DIOXIDE) 18 MMOL/L (24-34); CREATININE 8.81 MG/DL (0.70-1.30); GFR AFRICAN AMERICAN 6 ML/MIN (>=60); GFR NON AFRICAN AMERICAN 5 ML/MIN (>=60); PHOSPHORUS, SERUM 6.1 MG/DL (2.5-4.5)
[2017-03-10 06:58] LABS: HEMATOCRIT 28.8 % (40.0-51.0); HEMOGLOBIN 9.2 g/dL (13.6-17.8); MEAN CORPUS HGB CONC 31.9 g/dL (32.0-36.0); MEAN CORPUSCULAR HEMOGLOB 26.9 pg (26.0-34.0); MEAN CORPUSCULAR VOLUME 84.2 fL (80-100); MEAN PLATELET VOLUME 9.5 fL (9.2-13.0); PLATELET COUNT 269 10/3/uL (150-400); RBC DISTRIBUTION WIDTH 17.8 % (12.0-16.0); RED CELL COUNT 3.42 10/6/uL (4.7-6.1); WHITE BLOOD CELLS 8.3 10/3/uL (4.5-10.5)
[2017-03-10 06:59] LABS: MANUAL DIFF YES %
[2017-03-10 07:13] LABS: A/G RATIO 0.6 (0.7-1.9); ALBUMIN 2.5 G/DL (3.5-5.0); ALKALINE PHOSPHATASE 112 U/L (45-117); BUN (BLOOD UREA NITROGEN) 59 MG/DL (6-23); CALCIUM, SERUM 8.9 MG/DL (8.5-10.4); CHLORIDE, SERUM 100 MMOL/L (96-112); CO2 (CARBON DIOXIDE) 23 MMOL/L (24-34); GFR AFRICAN AMERICAN 9 ML/MIN (>=60); GFR NON AFRICAN AMERICAN 8 ML/MIN (>=60); GLOBULIN 4.2 G/DL (2.5-4.1); GLUCOSE, SERUM 120 MG/DL (60-99); POTASSIUM, SERUM 4.4 MMOL/L (3.5-5.3); SGOT(AST) 28 U/L (5-40); SGPT(ALT) 11 U/L (5-65); SODIUM, SERUM 135 MMOL/L (135-148); TOTAL BILIRUBIN 0.3 MG/DL (0-1.2); TOTAL PROTEIN 6.7 G/DL (6.0-8.5)
[2017-03-10 07:34] LABS: EOSINOPHILS 3 %; EOSINOPHILS ABSOLUTE (CALC) 0.25 10/3/uL (0.0-0.53); IMMATURE GRANS ABSOLUTE (CALC) 0.17 10/3/uL (0.0-0.11); LYMPHOCYTES 16 %; LYMPHOCYTES ABSOLUTE (CALC) 1.33 10/3/uL (0.67-4.30); METAMYELOCYTES 1 %; MONOCYTES 11 %; MONOCYTES ABSOLUTE (CALC) 0.91 10/3/uL (0.21-1.20); MYELOCYTES 1 %; NEUTROPHILS ABSOLUTE (CALC) 5.64 10/3/uL (2.02-8.40); PLATELET ESTIMATE ADQ (ADEQUATE); SEGMENTED NEUTROPHIL (0) 68 %; TOTAL NUCLEATED CELLS 100
[2017-03-10 07:35] LABS: ANISOCYTOSIS 1+ (5-10/OIF) (0-5/OIF); GIANT PLATELET RARE; HYPOCHROMIA 1+ (3-10/OIF) (0-2/OIF); OVALOCYTES 1+ (3-10/OIF) (0-2/OIF)
== END 2017-03-10 19:16 | DRG 177 ==
LOC: ENRESERVTM → ENRESERV → ENRESERVDT → ER 07:02 → 2SO 09:48 → MIC 09:48 → 6NO 09:48 → SDC/OF 03-02 15:49 → MIC 03-02 20:11 → 6NO 03-05 12:24
PROVIDERS: Emergency Medicine; Internal Medicine Nephrology; Registered Nurse
PROC: 5A09457 Assistance with Respiratory Ventilation, 24-96 Consecutive Hours, Continuous Positive Airway Pressure (ICD-10-PCS; principal; 2017-03-01)
PROC: 5A1D60Z (ICD-10-PCS; 2017-03-02)
DX: J69.0 Pneumonitis due to inhalation of food and vomit (principal); N18.6 End stage renal disease; G92 Toxic encephalopathy; I47.2 Ventricular tachycardia; I12.0 Hypertensive chronic kidney disease with stage 5 chronic kidney disease or end stage renal disease; E11.22 Type 2 diabetes mellitus with diabetic chronic kidney disease; T42.8X5A Adverse effect of antiparkinsonism drugs and other central muscle-tone depressants, initial encounter; E11.40 Type 2 diabetes mellitus with diabetic neuropathy, unspecified; I25.10 Atherosclerotic heart disease of native coronary artery without angina pectoris; M06.9 Rheumatoid arthritis, unspecified; I25.5 Ischemic cardiomyopathy; K21.9 Gastro-esophageal reflux disease without esophagitis; R06.6 Hiccough; E78.5 Hyperlipidemia, unspecified; S42.301D Unspecified fracture of shaft of humerus, right arm, subsequent encounter for fracture with routine healing; Y92.009 Unspecified place in unspecified non-institutional (private) residence as the place of occurrence of the external cause; D63.1 Anemia in chronic kidney disease; Z99.2 Dependence on renal dialysis; Z79.4 Long term (current) use of insulin; Z89.429 Acquired absence of other toe(s), unspecified side; Z95.828 Presence of other vascular implants and grafts; Z87.891 Personal history of nicotine dependence
CPT/HCPCS: 36569; 36600; 70450; 71010; 73020-RT; 80053; 80069; 82140; 82607; 82746; 82805; 82962; 83605; 83735; 84145; 84439; 84443; 84481; 84484; 85025; 87040; 92610-GN; 93005; 94640; 95813; 97110-GP; 97116-GP; 97161-GP; 97165-GO; 97530-GP; 99285; A9270-GY; C1751; C8924; C9113; G0257; J0456; J0692; J0885; J1953; J2543; J2920; J3370; P9047; Q9957